=== PATIENT | female | born 1945 | race Caucasian/White ===

== ENCOUNTER 2021-05-24 17:26 | Inpatient (IN) | payer MEDICARE, SELFPAY ==
[2021-05-24 17:27] VITALS: BP 135/84; PULSE 110; RESP 18; TEMP 37.3; O2SAT 96; BMI 25.0
[2021-05-24 17:34] VITALS: BP 135/84; PULSE 110; RESP 18; TEMP 37.3; O2SAT 96
--- NOTE | 2021-05-24 17:51 | EDS_ITS ---
HPI History of Present Illness Chief Complaint: Weakness Detail of Chief Complaint: Failure to thrive Informant: patient and family Onset/Context/Timing Onset: Days Context: Gradual Onset Timing: Continuous Current Severity: Mild Maximum Severity: Mild Narrative Narrative: 76-year-old female who has colon cancer metastases. That has caused her to have left urinary obstruction and a nephrostomy tube placed. Recently she has been hospitalized twice at [facility], [place]. She was just d ischarged from there yesterday. And is unable to care for self at home. She also has a at home who is legally blind from macular degeneration. Her granddaughter is present in the emergency department. They would like to see her placed in extended care facility. Also while recently hospitalized she did test positive for Covid. Prior similar symptoms: Yes Recent Illness/Hospitalization: Yes PFSH PFS Medical History Anemia Attention to nephrostomy Colon cancer HTN (hypertension) Kidney disease Allergy/AdvReac Type Severity Reaction Status Date / Time ANTIBIOTICS AdvReac Vomiting Uncoded 05/24/21 17:36 Surgical History H/O left hemicolectomy Social History Smoking Status: Unknown if ever smoked ROS ROS ED ROS Narrative Denies. Review of Systems ROS Unobtainable: Denies due to encephalopathy Constitutional Constitutional ED: Denies chills or fever(s) Eyes Eyes: Denies change in vision ENT ENT ED: Denies ear pain or rhinorrhea Cardiovascular Cardiovascular: Denies chest pain Respiratory/Chest Respiratory/Chest: Denies cough or dyspnea Gastrointestinal Gastrointestinal: Denies abdominal pain, diarrhea, nausea or vomiting Genitourinary Genitourinary ED: Denies dysuria Musculoskeletal Musculoskeletal: Denies myalgias Integumentary Denies rash Neurologic Neurologic: Denies headache(s) Psychiatric Psychiatric: Denies depression Endocrine Endocrinology: Denies polyuria Allergic/Immunologic Allergic/Immunologic ED: Denies urticaria EXAM Physical Exam Narrative Exam Narrative: 68-year-old female no acute distress. Vital signs stable afebrile. Pulse ox 96% on room air no hypoxia. HEENT exam unremarkable. Neck nontender no JVD. No lymphadenopathy. Lungs clear to auscultation bilaterally. Heart regular rhythm no murmur. Abdomen soft nontender nondistended normal bowel sounds no peritoneal signs. Moving all 4 extremities. No edema. Neurologically she is awake and alert. She is answering questions and following commands. Const Vital Signs: 05/24/21 17:27 05/24/21 17:34 05/24/21 17:37 Temperature 99.2 F H 99.2 F H Temperature Source Oral Oral Pulse Rate 110 H 110 H Respiratory Rate 18 18 Respiratory Effort Normal Respiratory Pattern Normal Blood Pressure 135/84 H 135/84 H Blood Pressure Mean 101 101 Pulse Ox 96 96 Oxygen Delivery Method Room Air Room Air Positive well nourished, well developed and obese; Negative for cachectic, contractures or unkempt General Appearance ED: well developed and NAD; Negative for unkempt, cachectic, contractures, cyanotic or diaphoretic Nutritional Appearance: obese; Negative for cachectic HEENT Reports moist mucous membranes Negative for trauma or tenderness Eyes PERRL and EOMs intact bilaterally Neck no lymphadenopathy, supple and no JVD General: Negative for tenderness Chest Wall inspection of chest normal and palpation of chest normal Resp normal respiratory effort and clear to auscultation bilaterally Auscultation: Negative for rales, rhonchi or wheezes Cardio regular rate, regular rhythm, S1 normal heart sound, S2 normal heart sound and no murmurs GI normal to inspection, nondistended, normoactive bowel sounds, non-tender and non -distended Inspection: Negative for abdominal distention Auscultation: normoactive bowel sounds Palpation: soft; Negative for tender, guarding or rebound tenderness present Back/Spine no CVA tenderness Back/Spine Narrative: Left nephrostomy tube. Extremity normal to inspection General Extremety ED: Negative for edema or tenderness General Extremity: Negative for edema Neuro oriented x3 Sensorium / Orientation: alert; Negative for orientation impaired, lethargic or stuporous Motor Exam: strength 5/5 throughout Psych mental status grossly normal Appearance: Negative for unkempt Attitude: No agitated Mood & Affect: Negative for depressed or tearful Skin no rashes or lesions noted and no wounds MDM MDM MDM Narrative Medical decision making narrative: Female history of colon CA with mets which is not having any treatment done for her. She is also Covid positive recently. Liu s been hospitalized x2 recently at another facility. She is failure to thrive at home and needs to be placed in a nursing facility. athletic turf worker will be involved. Repeat exam at 6:50 PM patient doing well. We went over test results. I discussed with her and her daughter possible hospice involvement. I also discussed with the hospitalist will be down to evaluate the patient for admission. Lab Data Attestation: I reviewed the patient's lab results. Lab results narrative: CBC White count 11.3. Hemoglobin 10.4. Electrolytes sodium 134. Gap 13. BUN 24 creatinine 1.23. Leukos 105. Labs: Laboratory Results - last 24 hr 05/24/21 05/24/21 17:35 17:35 WBC 11.3 H RBC 3.34 L Hgb 10.4 L Hct 31.4 L MCV 94.0 MCH 31.1 MCHC 33.1 RDW Std Deviation 40.4 RDW Coeff of Malathi 11.8 Plt Count 267 MPV 10.8 Immature Gran % (Auto) 0.700 Neut % (Auto) 71.0 H Lymph % (Auto) 19.3 Jackson % (Auto) 7.4 Eos % (Auto) 1.3 Baso % (Auto) 0.3 Absolute Neuts (auto) 8.0 H Absolute Lymphs (auto) 2.19 Nucleated RBC % 0 Sodium 134 L Potassium 3.6 Chloride 96 L Carbon Dioxide 25.0 Anion Gap 13 BUN 24 H Creatinine 1.23 H Estim Creat Clear Calc 33.92 Est GFR (MDRD) Af Amer 54 L Est GFR (MDRD) Non-Af 45 L BUN/Creatinine Ratio 19.5 Glucose 105 Calcium 8.6 Discharge Plan Dx/Rx/DC Orders Clinical Impression: Adult failure to thrive, COVID-19, Colon cancer metastasized to multiple sites, Acute unilateral obstructive uropathy Disposition Disposition: [facility]
[2021-05-24 18:04] LABS: Absolute Lymphocyte Count 2.19 X10^3/uL (0.83-4.51); Basophil# 0.03 X10^3/uL; Basophil% 0.3 % (0-1); Eosinophil# 0.15 X10^3/uL; Eosinophils% 1.3 % (0-5); Hematocrit 31.4 % (37-47); Hemoglobin 10.4 g/dL (12.0-15.0); Lymphocyte # 2.19 X10^3/ul (0.83-4.51); Lymphocyte % 19.3 % (19-41); Mean Corp Hgb Conc 33.1 g/dL (32-36); Mean Corpuscular Hgb 31.1 pg (27.0-32.0); Mean Platelet Vol. 10.8 fl (6.2-12.0); Monocyte# 0.84 X10^3/uL; Monocyte% 7.4 % (0-10); NRBC Flagged by Analyzer 0 % (0-5); Neutrophil # 8.03 X10^3/uL (2.7-7.7); Platelet Count 267 K/mm3 (150-450); RBC Distribution Width CV 11.8 % (11.6-14.6); RBC Distribution Width SD 40.4 fl (35.1-43.9); Red Blood Count 3.34 M/mm3 (4.2-5.4); White Blood Count 11.3 K/mm3 (4.4-11.0)
[2021-05-24 18:18] LABS: Anion Gap 13 (5-15); BUN 24 mg/dL (7-18); BUN/Creat Ratio 19.5 RATIO (10-20); Calcium,Total 8.6 mg/dL (8.5-10.1); Chloride 96 mmol/L (98-107); Creatinine, Serum 1.23 mg/dL (0.55-1.02); EST Glomerular Filtration Rate 45 mL/min (>60); Est Glom Filt Rate - Afr Amer 54 mL/min (>60); Estimated Creatinine Clearance 33.92 ml/min; Glucose 105 mg/dL (74-106); Potassium 3.6 mmol/L (3.5-5.1); Sodium Level 134 mmol/L (136-145)
--- NOTE | 2021-05-24 18:58 | CM.ED ---
SW Note Referral Source: parts identification technician Reason: Discharge planning SW met with patient and her granddaughter, Carlee. Patient gave this comic book writer permission to speak to her in the presence of the granddaughter. Granddaughter reported that patient was discharged from [facility] yesterday. Granddaughter said that patient has been in the hospital for the last 5 weeks, except for being at patient's daughters house for a few days. Granddaughter said that patient did not allow the medical staff to update family yesterday and thus patient's , who has macular degeneration, came to the hospital and got patient. Granddaughyter said that the patient's neighbor helped to get patient into the mobile home. Granddaughter said that patient's called looking for a wheelchair and could not locate one so patient was put in a office chair and wheeled to the back of the mobile home and she slept in the office chair at night. Patient, per granddaughter, said that her PCP would flush out her PICC line in 2 weeks. Granddaughter said that family is concerned about patient's safety. Patient was on [facility] but when into the hospital to have stints placed and thus got off hospice. Patient's granddaughter stated that they also talked to Palliative care but they would see patient only once every 6 weeks .. like your PCP. Granddaughter, Carlee, said If you stay in a residential for 30 days you will get all your home health covered when you are discharged. SW asked patient her desires and she indicated that she was in agreement with going to SNF with her first choice being the [place] and second choice [facility]. KETURAH explained that since patient tested COVID positive each facility may have their own criteria for placement and some SNF may not accept covid positive patients. KETURAH advised that this comic book writer will document this conversation and patient will then follow up with the social service technician on the floor she will be going to. Patient has been covid positive, with test, for 5 days. Patient and granddaughter verbalized understanding. No issues or concerns voiced. SW remains available if needs arise. SW will hand off information to assigned social service technician. Of note patient was previously linked with [facility]. Plan: SNF at discharge 1) [facility] 2) [facility]
--- NOTE | 2021-05-24 19:15 | HP.PCM.HOS_ITS ---
[facility] Date of Admission: 05/24/21 Date of Service: 05/24/21 Chief Complaint: Failure to thrive [facility] Narrative LISA NG, is a 76 F who presented to the emergency department [facility] on 05/24/2021 for debility and weakness/failure to thrive. The patient had recently been hospitalized at [facility] twice recently. She was just discharged from there yesterday. She has a history of metastatic colon cancer and is no longer undergoing treatment. Her cancer is caused her to have a left urinary obstruction and a nephrostomy was tube was placed for that. She follows with nephrology. She also has a left upper chest tunneled central line but is not undergoing any therapy via that at this time. She evidently was at my diet in general and was sharing a room with the patient who ended up being Covid positive and was tested and was found to be positive as well. Her test was 5 days ago. She is completely asymptomatic with regards to Covid. Upon getting home yesterday it was found that she was not able to take care of herself and her who has macular degeneration and is legally blind could not help take care of her either. There were thoughts that this would happen and there were plans for placement at [facility] but the patient then insisted that she was able to go home and would not allow case management to have any further discussion with her granddaughter with regards to placement. Given her issues at home they brought her to the emergency department to get placement. Her vital signs in the emergency department show that she is afebrile, mildly hypertensive and with low-grade tachycardia. The patient states that she is not been eating well. She states this is because she did not like the food at the hospital. She denies any shortness of breath, pain, naus ea, vomiting, diarrhea, constipation. Her granddaughter is at the bedside and states that they are hopeful that her nephrostomy tube will be able to become out and her tunneled central line will be able to be removed and she will be able to go home again. They do indicate that they have been [facility] but have not yet met with them yet. Her labs show mild leukocytosis and anemia but I have no recent lab for comparison. Her BMP shows mild hyponatremia 134 and a mildly elevated BUN and creatinine but is otherwise normal. I do not know what her baseline renal function is either. Her nephrostomy tube appears to be functioning well. Her granddaughter who is at bedside states that she would like her to be discharged to the [facility] or [facility]. They did already talk to the supervisor case loading in the emergency department. She would need 5 more days of isolation to complete 10-day course and she is asymptomatic with regards to COVID-19. [facility] Medical History Anemia Attention to nephrostomy Colon cancer HTN (hypertension) Kidney disease Allergy/AdvReac Type Severity Reaction Status Date / Time ANTIBIOTICS AdvReac Vomiting Uncoded 05/24/21 17:36 no significant family history Surgical History H/O left hemicolectomy Social History (Updated 05/24/21 @ 19:[address] Samia Evans DO) Smoking Status: Never smoker alcohol intake: never substance use type: does not use ROS Constitutional Constitutional: Reports anorexia, fatigue and weakness; Denies change in weight, chills, fever(s), malaise, night sweats or other Eyes Eyes: Denies blurry vision, change in eye color, change in vision, discharge from eye(s), double vision, erythema, eye pain, loss of vision or other ENT HEENT: Denies abnormal hearing, dysphagia, ear pain, epistaxis, headache(s), hearing loss, nasal congestion, nasal discharge, post nasal drip, sinus pressure, sore throat or other Cardiovascular Cardiovascular: Denies chest pain, claudication, dyspnea on exertion, edema, lightheadedness, orthopnea, palpitations, paroxysmal nocturnal dyspnea, rapid heart rate, syncope or other Respiratory/Chest Respiratory/Chest: Denies cough, dyspnea, excessive phlegm production, hemoptysis, productive cough, shortness of breath at rest, shortness of breath with exertion, wheezing or other Gastrointestinal Gastrointestinal: Reports other Details: Weight loss ; Denies abdominal pain, coffee ground emesis, constipation, diarrhea, dyspepsia, hematemesis, hematochezia, loose stools, melena, nausea or vomiting Genitourinary Genitourinary: Denies burning urination, difficulty urinating, dysuria, hematuria, nocturia, urinary frequency, urinary hesitancy, urinary incontinence, urinary urgency or other Musculoskeletal Musculoskeletal: Reports other Details: Generalized weakness ; Denies arthralgias, back pain, joint pain, joint stiffness, joint swelling, myalgias or neck pain Neurologic Neurologic: Reports confusion and other Details: Intermittent confusion ; Denies abnormal gait, abnormal speech, disequilibrium, dizziness, focal weakness, headache(s), numbness, paresthesias, seizure-like activity, seizures, syncope, tingling or tremor(s) Psychiatric Psychiatric: Denies anxiety, depression, homicidal ideation, suicidal ideation or other Endocrine Endocrinology: Denies change in body appearance, cold intolerance, excessive sweating, heat intolerance, polydipsia, polyuria or other Hematologic/Lymphatic Hematologic/Lymphatic: Denies anemia, easy bleeding, easy bruising, lymphadenopathy or other Allergic/Immunologic Allergic/Immunologic: Denies rhinitis, hives, eczemia, asthma or other Vital Signs Vital Signs Vital Signs: 05/24/21 17:27 05/24/21 17:34 05/24/21 17:37 Temperature 99.2 F H 99.2 F H Temperature Source Oral Oral Pulse Rate 110 H 110 H Respiratory Rate 18 18 Respiratory Effort Normal Respiratory Pattern Normal Blood Pressure 135/84 H 135/84 H Blood Pressure Mean 101 101 Pulse Ox 96 96 Oxygen Delivery Method Room Air Room Air Weight Weight: 68.2 kg Body Mass Index (BMI) 25.0 Physical Exam Const alert, oriented x3 and no apparent distress Constitutional Narrative: Elderly white female sitting up in bed, nontoxic- appearing, granddaughters at bedside General Appearance: cooperative HEENT normocephalic, head/scalp atraumatic, hearing grossly normal bilaterally and moist oral mucous membranes HEENT Narrative: Dentition is fair, no thrush, Mallampati 2 Eyes PERRL, EOMs intact bilaterally and conjunctivae normal Eyes Narrative: No scleral icterus Neck no lymphadenopathy, supple, no JVD and no carotid bruits Neck Narrative: Trachea is midline, no thyroid enlargement, right sternoclavicular joint is abnormal with protuberant Resp normal respiratory effort, no retractions, no use of accessory muscles and clear to auscultation bilaterally Auscultation: Negative for crackles, rales, rhonchi or wheezes Cardio regular rhythm, S1 normal heart sound, S2 normal heart sound, no murmurs, no rub, no gallops, no clicks and no JVD Cardio Narrative: Tachycardia GI normal to inspection, nondistended, normoactive bowel sounds, soft to palpation, non-tender and non-distended Extremity no clubbing, cyanosis or edema Peripheral Pulses: Yes pulses 2+ throughout Skin no rashes or lesions noted, no wounds, skin turgor normal, no jaundice, no petechiae and no mottling Skin Narrative: Skin is pale, left upper chest tunneled central venous catheter- clean and dry, dressing in place Neuro oriented x3, CN's II-XII intact bilaterally, moves all extremities and no focal motor deficits Neuro Narrative: Significant generalized weakness but no focal deficits Sensorium / Orientation: awake and alert Speech: speech normal Psych affect normal Results Lab / Micro Data Result Diagrams: 05/24/21 17:35 05/24/21 17:35 Labs: Laboratory Results - last 24 hr 05/24/21 17:35: WBC 11.3 H, RBC 3.34 L, Hgb 10.4 L, Hct 31.4 L, MCV 94.0, MCH 31.1, MCHC 33.1, RDW Std Deviation 40.4, RDW Coeff of Malathi 11.8, Plt Count 267, MPV 10.8, Immature Gran % (Auto) 0.700, Neut % (Auto) 71.0 H, Lymph % (Auto) 19.3, [place] % (Auto) 7.4, Eos % (Auto) 1.3, Baso % (Auto) 0.3, Absolute Neuts (auto) 8.0 H, Absolute Lymphs (auto) 2.19, Nucleated RBC % 0 05/24/21 17:35: Sodium 134 L, Potassium 3.6, Chloride 96 L, Carbon Dioxide 25.0, Anion Gap 13, BUN 24 H, Creatinine 1.23 H, Estim Creat Clear Calc 33.92, Est GFR (MDRD) Af Amer 54 L, Est GFR (MDRD) Non-Af 45 L, BUN/Creatinine Ratio 19.5, Glucose 105, Calcium 8.6 Assessment & Plan Assessment/Plan (1) Adult failure to thrive: (2) COVID-19: (3) Colon cancer metastasized to multiple sites: (4) Acute unilateral obstructive uropathy: PLAN: Adult failure to thrive -Patient will need placement as she is not able to live at home -Family prefers the [facility] versus [facility] -Patient needs assistance with ADLs and IADLs -Patient also has nephrostomy tube and tunneled central catheter which she needs assistance with and management -PT/OT consultation COVID-19 -Patient is essentially asymptomatic -Roommate at [facility] was found to be positive and she subsequently tested positive but has been asymptomatic since onset -Positive test was 5 days ago -Patient will need 5 more days for 10 days of isolation/quarantine -No treatment warranted at this time Metastatic colon cancer -Patient is no longer undergoing therapy -Palliative care consultation -Extensive discussion with the patient with regards to CODE STATUS during the emergency hospital course and she would like to stay full code at this time despite the recommendation for DNR CCA -No current pain Acute unilateral obstructive uropathy -Currently being managed with a nephrostomy tube -Follows with nephrology -Recommend outpatient follow-up -Urine output from site is good at this time BRIJESH versus CKD -Baseline serum creatinine is unknown -We will give gentle hydration at this time and monitor serum creatinine -Urostomy output is good -Repeat BMP in a.m. DVT prophylaxis -Lovenox daily -SCDs CODE STATUS -Full code as per discussion the emergency department with patient and granddaughter Charges/Coding Visit Charges Inpatient E&M: 29391 Init Hosp L3
[2021-05-24 19:19] VITALS: BP 122/74; PULSE 93; RESP 13; TEMP 36.7; O2SAT 95
[2021-05-24 19:48] VITALS: BMI 24.3
[2021-05-24 19:53] VITALS: BP 129/73; PULSE 93; RESP 16; TEMP 36.7; O2SAT 95
[2021-05-25] VITALS (7 sets, daily range): BP systolic 114–129; BP diastolic 65–77; PULSE 92–96; RESP 16; TEMP 36.4–36.5; O2SAT 94–97
[2021-05-25 06:09] LABS: Absolute Neutrophil Count 6.2 X10^3/uL (2.0-7.7); Basophil# 0.03 X10^3/uL; Basophil% 0.3 % (0-1); Eosinophil# 0.22 X10^3/uL; Eosinophils% 2.4 % (0-5); Hematocrit 30.3 % (37-47); Hemoglobin 9.9 g/dL (12.0-15.0); Lymphocyte % 19.9 % (19-41); Mean Corp Hgb Conc 32.7 g/dL (32-36); Mean Corpuscular Hgb 31.3 pg (27.0-32.0); Mean Corpuscular Volume 95.9 fL (81-99); Mean Platelet Vol. 10.7 fl (6.2-12.0); Monocyte# 0.79 X10^3/uL; Monocyte% 8.7 % (0-10); NRBC Flagged by Analyzer 0 % (0-5); Neutrophil # 6.17 X10^3/uL (2.7-7.7); Neutrophil % 68.1 % (47-70); Platelet Count 221 K/mm3 (150-450); RBC Distribution Width CV 11.8 % (11.6-14.6); RBC Distribution Width SD 41.3 fl (35.1-43.9); Red Blood Count 3.16 M/mm3 (4.2-5.4); White Blood Count 9.1 K/mm3 (4.4-11.0)
[2021-05-25 08:22] LABS: Anion Gap 14 (5-15); BUN 23 mg/dL (7-18); Calcium,Total 8.3 mg/dL (8.5-10.1); Chloride 100 mmol/L (98-107); EST Glomerular Filtration Rate 57 mL/min (>60); Est Glom Filt Rate - Afr Amer 69 mL/min (>60); Estimated Creatinine Clearance 41.72 ml/min; Glucose 75 mg/dL (74-106); Potassium 3.9 mmol/L (3.5-5.1); Sodium Level 137 mmol/L (136-145)
--- NOTE | 2021-05-25 08:41 | CASEMGMT ---
Addendum entered by Kelsey Stephens 05/25/21 09:23: SW also placed a call to Joselin at [facility] to ask what their requirements are for COVID+ pt's. Joselin states they won't even look at a referral until pt has completed 14 days from post positive test. Joselin states they would look at the referral on day 15 of post positive test. SW placed a call to pt's granddaughter Carlee and left message requesting call back. SW to discuss SNF options with pt and pt's family. Original Note: Social Work Note SW received referral for SNF placement. Pt supposedly had Positive COVID test 5 days ago (SW to confirm this with pt and pt's family). Pt's preferred provider is [facility]. SW placed a call to Evangelina at [facility]. Evangelina states they will only take COVID pt's that are 10 days post positive test and has to be symptom free for 24 hours. SW to check with pt and pt's family on regards to exact day of COVID positive test. 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
[2021-05-25] MEDS: Enoxaparin 40 MG/0.4 ML Syringe SC (08:54)
[2021-05-25] MEDS: 0.9% Saline Lock 10 ML Syringe IV (08:56)
--- NOTE | 2021-05-25 10:14 | NURSING ---
Per Carlee, pt's granddaughter, pt had positive Covid test on 05/19/21
--- NOTE | 2021-05-25 11:00 | CASEMGMT ---
Social Work Assessment Referral Date: 05/24/2021 Date of Assessment: 05/25/2021 Reason for consult: SNF placement Informant: KETURAH REBOLLAR received call from pt's granddaughter Carlee. KETURAH spoke with Carlee about pt. Carlee galan pt was at [facility] most recently from 05/10/2021-05/23/2021. Carlee galan pt was in a semi private room and pt's roommate went to a [facility] and had to be tested for COVID and ended up testing positive so then they tested pt and pt also came back COVID positive. Carlee galan pt tested positive on 05/19/21. Carlee thinks pt may have left [facility] AMA as pt stating no one educated her on the nephrostomy bag that pt has and pt was discharged home with a PICC line that pt didn't need at home. Carlee states she is not sure though as pt had told [facility] staff they couldn't talk to her so she is unable to get any information from them. KETURAH spoke with Carlee about discharge plans and how [facility] will not take pt until pt is 10 days from post positive test and pt will need 4 more days until pt is 10 days post positive test. Carlee states that she was told in the ED that pt would stay at [facility] for five days until pt is 10 days post positive. KETURAH informed Carlee that everything that is being managed at [facility] can be managed at a SNF (therapy, COVID, etc) and of note, pt is not on any oxygen currently for COVID and is not having any symptoms. KETURAH informed Carlee that pt would need to go to a different SNF initially and then could transition to [facility] once pt is 10 days post positive test. KETURAH informed Carlee that there is a SNF [facility] that did open up a COVID unit and may be able to accept pt. KETURAH explained that [facility] is the only SNF [facility] accepting COVID+ pt's so if they cannot accept pt, pt would need to go to a SNF in [place]. Carlee states she is fine with pt going to [facility] in [place] (as Carlee lives in [place]) and could then transition to [facility] once pt is 10 days post positive test. KETURAH informed Carlee that this worker will speak with pt and keep her updated. Carlee states understanding. Personal Status: SW in to speak with pt. KETURAH introduced self and role at [facility]. Pt is alert and orientated to name, place, somewhat time. Pt knew it was 2020 but thought it was May. Living Arrangements: Pt states she lives with her in a mobile home with three steps to enter with railings by the steps. PCP: Pt states she doesn't think she has a PCP, states she see's many doctors. Per pt's facesheet, pt's PCP is Rohini Morris. Pharmacy: [facility]: Pt states she has a cane and walker ADLs: Independent Substance Abuse Hx: None Mental Health Hx: None SW spoke with pt about SNF about how this worker spoke with Carlee. KETURAH informed pt that because she hasn't completed 10 days post positive COVID test, pt cannot go to [facility]. KETURAH explained that there is a SNF [facility], that is accepting COVID+ pt's. KETURAH informed pt that Carlee is agreeable to pt going to [facility]. Pt states she is agreeable and states whatever Carlee thinks is good. KETURAH spoke with PT/OT, they are to evaluate pt soon. SW faxed initial referral to Gemma at [facility]. SW to fax PT/OT once completed. KETURAH placed a call to Gemma at [facility] and left message regarding referral. 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
--- NOTE | 2021-05-25 11:54 | TREXTCAR_ITS ---
Diet 05/24/21 19:47 Diet: Regular - General Food consistency:: Regular Liquid Consistency:: Regular/Thin Type of Dietary Supplement:: Magic Cup Dessert Diet Comments: magic cup TID Routine Orders/Code Status Routine Lab Work: CBC (within 3 days) and BMP (within 3 days) Code Status: Full Code Therapies Weight Bearing: Weight bearing as tolerated Problem/Diagnosis (1) Adult failure to thrive: Status: Acute (2) COVID-19: Status: Acute (3) Colon cancer metastasized to multiple sites: Status: Acute (4) Acute unilateral obstructive uropathy: Status: Acute Allergies/Procedures Done in Hospital Allergies ANTIBIOTICS Adverse Reaction (Uncoded 05/24/21 17:36) Vomiting PT SUÁREZ CHART STATES NO ACTIVE KNOWN ALLERGIES Procedures: None Type of Care/Length of Stay Estimated LOS: Convalescent Care Less Than 30 days Type of Care Needed: Skilled Rehab Potential: Good Prognosis: Good Additional Orders/Day of Discharge Day of Discharge: 05/25/21 Discharge Plan Admission Admit Date/Time: 05/24/21 19:10 Primary Reason for Your Visit: Debility/Acute COVID-19 infection without hypoxia Attending Provider: Shira Aguayo Instructions Additional Instructions / Restrictions: Patient needs palliative care consultation in the [place] Discharge Orders/Prescriptions Prescriptions: Continued acetaminophen [Tylenol] 325 mg Tablet 650 mg PO Q4H PRN (Reason: Pain) RF: 0 dronabinol 2.5 mg capsule 2.5 mg PO BIDCM RF: 0 Referrals / Follow Up: ELTON CRONIN [Other] Gladys Juan MD [STAFF PHYSICIAN] - Within 2 Weeks Disposition Disposition (needs filled in before D/C Order can be placed): [facility]irement Facility
--- NOTE | 2021-05-25 11:58 | PCM.DC.SUM ---
Providers Date of Admission: 05/24/21 Date of Discharge: 05/25/21 Primary Care Physician: ELTON CRONIN Reason For Visit: DEBILITY Diagnosis Discharge Diagnosis (1) Adult failure to thrive: Status: Acute Code(s): R62.7 - Adult failure to thrive (2) COVID-19: Status: Acute Code(s): U07.1 - COVID-19 (3) Colon cancer metastasized to multiple sites: Status: Chronic Code(s): C18.9 - Malignant neoplasm of colon, unspecified (4) Acute unilateral obstructive uropathy: Status: Chronic Code(s): N13.9 - Obstructive and reflux uropathy, unspecified Medications at Discharge Home Medications acetaminophen [Tylenol] 650 mg PO Q4H PRN 05/24/21 dronabinol 2.5 mg PO BIDCM 05/24/21 Hospital Course Operations None Procedures None Summary of Care Provided Minutes Spent on Discharge: 45 Hospital Course: 76-year-old female with past medical history of metastatic colon CA, no longer undergoing chemotherapy, complicated by left urinary obstruction with nephrostomy tube placed. Patient was recently hospitalized at [facility] 2 times recently. She was discharged a day prior to admission. Patient presented with generalized weakness. She stated that at [facility], she shared a room with the patient who ended up being Covid positive. She got tested and was positive as well. She has however remained asymptomatic with regards to her Covid infection. She did not require oxygen. Her family especially her has macular degeneration and is legally blind and cannot help take care of herself. In [facility], there were plans for placement in a group home facility but patient refused. According to family, patient is not eating well. She was admitted to the hospital and monitored. She still did not require oxygen. Patient was seen by PT and OT and skilled for discharge to group home facility. She was discharged to [facility]. She will be followed by palliative care in the institution. Patient was never hypoxic and did not require use of Decadron. Physical Exam Narrative Physical exam: General: Alert, Oriented x3, Cooperative, No apparent distress, Well developed HEENT: Atraumatic Oral: Moist Mucosa Neck: Supple Lungs: Clear to auscultation Cardiovascular: HS I+II, regular, no murmurs Abdomen: Bowel Sounds Present, Soft, Non Tender, nephrostomy tube Extremities: No edema Weight / BMI Weight Weight: 66.4 kg Body Mass Index (BMI) 24.3 ABG / Lab / Microbiology Data Result Diagrams: 05/25/21 05:46 05/25/21 05:46 Laboratory: Laboratory Results - last 24 hr 05/24/21 17:35: WBC 11.3 H, RBC 3.34 L, Hgb 10.4 L, Hct 31.4 L, MCV 94.0, MCH 31.1, MCHC 33.1, RDW Std Deviation 40.4, RDW Coeff of Malathi 11.8, Plt Count 267, MPV 10.8, Immature Gran % (Auto) 0.700, Neut % (Auto) 71.0 H, Lymph % (Auto) 19.3, [place] % (Auto) 7.4, Eos % (Auto) 1.3, Baso % (Auto) 0.3, Absolute Neuts (auto) 8.0 H, Absolute Lymphs (auto) 2.19, Nucleated RBC % 0 05/24/21 17:35: Sodium 134 L, Potassium 3.6, Chloride 96 L, Carbon Dioxide 25.0, Anion Gap 13, BUN 24 H, Creatinine 1.23 H, Estim Creat Clear Calc 33.92, Est GFR (MDRD) Af Amer 54 L, Est GFR (MDRD) Non-Af 45 L, BUN/Creatinine Ratio 19.5, Glucose 105, Calcium 8.6 05/25/21 05:46: WBC 9.1, RBC 3.16 L, Hgb 9.9 L, Hct 30.3 L, MCV 95.9, MCH 31.3, MCHC 32.7, RDW Std Deviation 41.3, RDW Coeff of Malathi 11.8, Plt Count 221, MPV 10.7, Immature Gran % (Auto) 0.600, Neut % (Auto) 68.1, Lymph % (Auto) 19.9, [place] % (Auto) 8.7, Eos % (Auto) 2.4, Baso % (Auto) 0.3, Absolute Neuts (auto) 6.2, Absolute Lymphs (auto) 1.80, Nucleated RBC % 0 05/25/21 05:46: Sodium 137, Potassium 3.9, Chloride 100, Carbon Dioxide 23.0, Anion Gap 14, BUN 23 H, Creatinine 1.00, Estim Creat Clear Calc 41.72, Est GFR (MDRD) Af Amer 69, Est GFR (MDRD) Non-Af 57 L, BUN/Creatinine Ratio 23.0 H, Glucose 75, Calcium 8.3 L, Phosphorus 3.0, Magnesium 2.0 Meaningful Use Info Meaningful Use Diagnoses (Choose all that apply): None applicable Discharge Plan Admission Admit Date/Time: 05/24/21 19:10 Primary Reason for Your Visit: Debility/Acute COVID-19 infection without hypoxia Attending Provider: Shira Aguayo Instructions Additional Instructions / Restrictions: Patient needs palliative care consultation in the [place] Discharge Orders/Prescriptions Prescriptions: Continued acetaminophen [Tylenol] 325 mg Tablet 650 mg PO Q4H PRN (Reason: Pain) RF: 0 dronabinol 2.5 mg capsule 2.5 mg PO BIDCM RF: 0 Referrals / Follow Up: ELTON CRONIN [Other] Gladys Juan MD [STAFF PHYSICIAN] - Within 2 Weeks Disposition Disposition (needs filled in before D/C Order can be placed): Longterm Facility Charges/Coding Visit Charges Inpatient E&M: 18345 Disch Hosp
--- NOTE | 2021-05-25 12:54 | CASEMGMT ---
RNCM Progress Note: Palliative screening tool completed per [facility] policy d/t Dr Evans request and family was already in process with [facility] for consult but has not met yet d/t patient being admitted a couple times in hospital recently and just Dc'd from [facility] on 05/23/21. Patient met criteria and faxed to [facility]. Marry Reyes RNCM
--- NOTE | 2021-05-25 14:05 | CASEMGMT ---
Social Work Note SW received email from Gemma at [facility]missions stating they can accept pt today. KETURAH updated physician. Pt to discharge today. Physician asked for this worker to update Martita Simms with [facility] that pt is to discharge to [facility] today. SW updated Martita Simms, pt to discharge to [facility] today. KETURAH faxed completed discharge paperwork to [facility] including transfer to extended care facility, signed mediation list, any scripts, COVID tool and PT/OT evaluations. Original in SNF folder and copy on pt's chart. KETURAH completed convalescent [facility] in [facility]. Original in SNF Folder and copy on pt's chart. KETURAH spoke with RN, pt to transport via wheelchair van. KETURAH accessed trip assist and arranged transportation via wheelchair van for 3:00pm. Transportation form completed and placed on SNF folder and copy on pt's chart. KETURAH placed a call to pt's granddaughter Carlee and updated her that pt has been accepted to [facility] and will discharge there today at 3:00pm. Carlee states understanding. KETURAH placed a call to Gemma at [facility] and left message updating her on transportation time. KETURAH attempted to call pt's room to update, no answer. KETURAH spoke with RN. RN states she will update pt on acceptance to [facility], discharge and transportation time. Plan: [facility] skilled under convalescent stay with Physician's transporting pt via wheelchair van at 3:00pm Kelsey MARISCAL, AIR FILLER
--- NOTE | 2021-05-25 14:35 | NURSING ---
Report called to SHEREEN Linder at [facility]
== END 2021-05-25 15:00 | disposition skilled nursing facility (03) | DRG 640 ==
LOC: ED 18:55 → MS3 19:16
PROVIDERS: Admitting Provider Internal Medicine; Emergency Provider Emergency Medicine; Visit Provider Internal Medicine
DX: R62.7 Adult failure to thrive (principal); U07.1 COVID-19; C79.9 Secondary malignant neoplasm of unspecified site; E87.1 Hypo-osmolality and hyponatremia; C18.9 Malignant neoplasm of colon, unspecified; N13.9 Obstructive and reflux uropathy, unspecified; R94.4 Abnormal results of kidney function studies; I10 Essential (primary) hypertension; Z68.24 Body mass index [BMI] 24.0-24.9, adult; Z23 Encounter for immunization; Z93.6 Other artificial openings of urinary tract status
CPT/HCPCS: 36415; 80048; 83735; 84100; 85025; 97162; 97166; 99251; 99285; G0008; 90686; A4216; G0463

== ENCOUNTER 2021-08-28 18:13 | Observation (INO) | payer MEDICARE, MEDICAID, SELFPAY ==
[2021-08-28] VITALS (9 sets, daily range): BP systolic 116–133; BP diastolic 49–74; PULSE 91–106; RESP 16–96; TEMP 36.3–36.8; O2SAT 94–97; BMI 29.1; BMI 23.5
--- NOTE | 2021-08-28 18:33 | EDS_ITS ---
HPI History of Present Illness Chief Complaint: Complaint Informant: patient, family and EMS Onset/Context/Timing Onset: Today Quality: Dark bloody nephrostomy fluid Location: Right nephrostomy bag Current Severity: Moderate Maximum Severity: Moderate Worsened by: Nothing in particular Relieved by: Nothing Associated Symptoms Associated Symptoms: Gradual increase chronic right low back pain in past 1-2 weeks Narrative Narrative: Patient has history of metastatic colon cancer that she refused chemotherapy for several times. She had surgery, colostomy, and she noted of having ureteral stents that were removed several months ago, the cancer had caused obstruction of both of them, and within a day or 2 she stopped urinating, she already had a left nephrostomy and then required a right to be placed. Today she noticed dark bloody output into the right side and more than usual. The daughter states about 75% of her total urine output occurs on the left, which has been clear yellow but foul-smelling recently. Patient denies any fevers or chills. She has chronic nausea/vomiting, she gets Zofran 8 mg ODT alternating with Phenergan 25 mg orally throughout the day every day; she last received Phenergan about 1 hour ago and left received Zofran approximately 2-3 hours ago. Patient is inpatient hospice because she has been too weak to get around on her own. [facility]. All of her doctors are at [facility]. Daughter states she preferred to have hospice simply check her urine, but the patient refused and demanded to sign out of hospice temporarily to come to the ER; they preferred to have her go to [facility], however they were not able to take her by private car and needed EMS, and local EMS can only come locally. [facility] Medical History (Updated 08/28/21 @ 21:[address] Jeromy Dennis MD) Anemia Anxiety Attention to nephrostomy CKD (chronic kidney disease) stage 3, GFR 30-59 ml/min Colon cancer Diverticula of intestine Gastro-esophageal reflux disease without esophagitis Heart disease HTN (hypertension) Hydronephrosis Hypo-osmolality and hyponatremia Kidney disease Malignant neoplasm Nausea & vomiting Obstructive and reflux uropathy Protein calorie malnutrition UTI (urinary tract infection) Weakness Home Medications acetaminophen [Tylenol] 650 mg PO Q4H PRN 05/24/21 [History Last Taken Unknown] dronabinol 2.5 mg PO BIDCM 05/24/21 [History Last Taken Unknown] Allergy/AdvReac Type Severity Reaction Status Date / Time ANTIBIOTICS AdvReac Vomiting Uncoded 05/24/21 17:36 Surgical History H/O left hemicolectomy Social History Smoking Status: Never smoker alcohol intake: never substance use type: does not use ROS ROS ED Constitutional Constitutional ED: Reports fatigue and weakness; Denies chills or fever(s) Eyes Eyes: Denies change in vision or diplopia ENT ENT ED: Denies rhinorrhea or sore throat Cardiovascular Cardiovascular: Denies chest pain or palpitations Respiratory/Chest Respiratory/Chest: Denies cough or dyspnea Gastrointestinal Gastrointestinal: Reports constipation, nausea and vomiting; Denies abdominal pain or diarrhea Genitourinary Genitourinary ED: Denies dysuria or hematuria Musculoskeletal Musculoskeletal: Reports back pain; Denies neck pain Integumentary Denies abscess or rash Neurologic Neurologic: Denies headache(s), paresthesias or weakness Psychiatric Psychiatric: Denies anxiety or suicidal thoughts EXAM Physical Exam Const Vital Signs: 08/28/21 18:15 08/28/21 18:24 08/28/21 18:30 Temperature 97.6 F L 97.4 F L Temperature Source Temporal Temporal Pulse Rate 106 H 99 Respiratory Rate 16 18 Blood Pressure 132/73 H 132/73 H Blood Pressure Mean 92 92 Pulse Ox 96 97 Oxygen Delivery Method Room Air Room Air 08/28/21 19:55 08/28/21 20:26 Temperature 98 F 98 F Temperature Source Temporal Temporal Pulse Rate 91 91 Respiratory Rate 18 96 H Blood Pressure 128/56 H 122/49 H Blood Pressure Mean 80 73 Pulse Ox 96 96 Oxygen Delivery Method Room Air Room Air Positive well nourished and well developed General Appearance ED: well developed and NAD HEENT Reports moist mucous membranes normocephalic and atraumatic Eyes PERRL and EOMs intact bilaterally Neck full ROM and supple Resp normal respiratory effort and clear to auscultation bilaterally Cardio regular rate, regular rhythm and no murmurs GI non-tender and non-distended GI Narrative: Left lower quadrant colostomy with nonbloody hard stool present Auscultation: normoactive bowel sounds Palpation: soft Back/Spine normal to inspection General Back: CVA tenderness right (with benign-appearing nephrostomy sites bilaterally, no discharge from catheter sites.) and other FROM Extremity normal to inspection General Extremety ED: Negative for edema, pulses abnormal or tenderness General Extremity: Negative for edema or pulses abnormal Neuro oriented x3, CN's II-XII intact bilaterally and no sensory deficits noted Sensorium / Orientation: awake and alert Motor Exam: strength 5/5 throughout Skin no rashes or lesions noted and no wounds MDM MDM MDM Narrative Medical decision making narrative: Labs are noted, lactate within normal limits, her potassium is a little low, no significant leukocytosis, and her vital signs are normal. Her nausea is well controlled with a dose of Zofran, her nausea resolved for period of time. Her pain is much better now that her facility gave her Dilaudid. Both of her urine samples from her nephrostomy tubes show almost identical results, except for the one that looks bloody does indeed have more blood content. Both are triggering positive infection tests and have bacteria. Differential here includes infection as well as bleeding from other cause, she is not septic, she could be colonized and not infected. I agree with treating her with antibiotics until the cultures result, at the very least. Patient is unable to tolerate any oral antibiotic due to vomiting. She has a PICC in the left upper extremity, our nurses changed the dressing for the first time in 3 weeks according to the daughter. The patient is in hospice but checked herself out in order to come here today. They are requesting that we continue IV antibiotics here in the hospital until the morning when hopefully [facility] can get her into the inpatient facility, daughter is concerned that [facility] does not have adequate staff to administer IV antibiotics at this time. Lab Data Attestation: I reviewed the patient's lab results. Labs: Laboratory Results - last 24 hr 08/28/21 08/28/21 08/28/21 18:52 18:52 18:52 WBC 9.6 RBC 3.13 L Hgb 9.2 L Hct 29.2 L MCV 93.3 MCH 29.4 MCHC 31.5 L RDW Std Deviation 46.5 H RDW Coeff of Malathi 13.7 Plt Count 326 MPV 10.0 Immature Gran % (Auto) 0.500 Neut % (Auto) 72.3 H Lymph % (Auto) 15.[address] [place] % (Auto) 8.6 Eos % (Auto) 2.2 Baso % (Auto) 0.6 Absolute Neuts (auto) 7.0 Absolute Lymphs (auto) 1.52 Nucleated RBC % 0 Sodium 135 L Potassium 3.0 L Chloride 102 Carbon Dioxide 24.0 Anion Gap 9 BUN 23 H Creatinine 1.11 H Estim Creat Clear Calc 36.07 Est GFR (MDRD) Af Amer 61 Est GFR (MDRD) Non-Af 51 L BUN/Creatinine Ratio 20.7 H Glucose 122 H Lactic Acid 0.9 Calcium 8.6 Urine Color Urine Clarity Urine pH Ur Specific Brule Urine Protein Urine Glucose (UA) Urine Ketones Urine Occult Blood Urine Nitrite Urine Bilirubin Urine Urobilinogen Ur Leukocyte Esterase Urine RBC Urine WBC Ur Squamous Epith Cells Amorphous Sediment Urine Bacteria Urine Mucus 08/28/21 08/28/21 19:18 19:18 WBC RBC Hgb Hct MCV MCH MCHC RDW Std Deviation RDW Coeff of Malathi Plt Count MPV Immature Gran % (Auto) Neut % (Auto) Lymph % (Auto) [place] % (Auto) Eos % (Auto) Baso % (Auto) Absolute Neuts (auto) Absolute Lymphs (auto) Nucleated RBC % Sodium Potassium Chloride Carbon Dioxide Anion Gap BUN Creatinine Estim Creat Clear Calc Est GFR (MDRD) Af Amer Est GFR (MDRD) Non-Af BUN/Creatinine Ratio Glucose Lactic Acid Calcium Urine Color Milagros Yellow Urine Clarity Cloudy Cloudy Urine pH 8.0 7.0 Ur Specific Brule 1.015 1.010 Urine Protein 500 H 30 H Urine Glucose (UA) Normal Normal Urine Ketones 5 H Negative Urine Occult Blood 250 H 250 H Urine Nitrite Positive H Positive H Urine Bilirubin Negative Negative Urine Urobilinogen Normal Normal Ur Leukocyte Esterase 500 H 500 H Urine RBC > 100 SEEN 25-50 SEEN Urine WBC 50-100 SEEN 50-100 SEEN Ur Squamous Epith Cells 0-5 SEEN 0-5 SEEN Amorphous Sediment 2+ PHOS 1+ PHOS Urine Bacteria 2+ 1+ Urine Mucus 0 SEEN 0 SEEN Discharge Plan Triage Chief Complaint: Complaint ED Provider: Jeromy Dennis Dx/Rx/DC Orders Clinical Impression: Complicated urinary tract infection, Colon cancer metastasized to multiple sites, Hematuria, Obstructed, uropathy Prescriptions: No Action acetaminophen [Tylenol] 325 mg Tablet 650 mg PO Q4H PRN (Reason: Pain) RF: 0 dronabinol 2.5 mg capsule 2.5 mg PO BIDCM RF: 0 Referrals: ELTON CRONIN [Other] Disposition Disposition: Acute Care Hospital [facility]
[2021-08-28] MEDS: Ondansetron 4 MG/2 ML Vial IV (19:04)
[2021-08-28 19:16] LABS: Absolute Lymphocyte Count 1.52 X10^3/uL (0.83-4.51); Basophil# 0.06 X10^3/uL; Basophil% 0.6 % (0-1); Eosinophil# 0.21 X10^3/uL; Eosinophils% 2.2 % (0-5); Hematocrit 29.2 % (37-47); Hemoglobin 9.2 g/dL (12.0-15.0); Lymphocyte # 1.52 X10^3/ul (0.83-4.51); Lymphocyte % 15.8 % (19-41); Mean Corp Hgb Conc 31.5 g/dL (32-36); Mean Corpuscular Hgb 29.4 pg (27.0-32.0); Mean Corpuscular Volume 93.3 fL (81-99); Monocyte# 0.83 X10^3/uL; Monocyte% 8.6 % (0-10); NRBC Flagged by Analyzer 0 % (0-5); Neutrophil # 6.96 X10^3/uL (2.7-7.7); Neutrophil % 72.3 % (47-70); Platelet Count 326 K/mm3 (150-450); RBC Distribution Width CV 13.7 % (11.6-14.6); RBC Distribution Width SD 46.5 fl (35.1-43.9); Red Blood Count 3.13 M/mm3 (4.2-5.4); White Blood Count 9.6 K/mm3 (4.4-11.0)
[2021-08-28 19:26] LABS: Mucous, Urine 0 SEEN /hpf (<or=2+)
[2021-08-28 19:29] LABS: Anion Gap 9 (5-15); BUN 23 mg/dL (7-18); BUN/Creat Ratio 20.7 RATIO (10-20); Calcium,Total 8.6 mg/dL (8.5-10.1); Chloride 102 mmol/L (98-107); Creatinine, Serum 1.11 mg/dL (0.55-1.02); EST Glomerular Filtration Rate 51 mL/min (>60); Est Glom Filt Rate - Afr Amer 61 mL/min (>60); Estimated Creatinine Clearance 36.07 ml/min; Glucose 122 mg/dL (74-106); Sodium Level 135 mmol/L (136-145)
[2021-08-28 19:30] LABS: Color, Urine Amber (Yellow); Glucose, Dipstick Normal (Normal); Ketone-Dipstick 5 mg/dl (Negative); Leukocyte Esterase-Dipstick 500 /ul (Negative); Nitrite-Dipstick Positive (Negative); Occult Blood-Urine 250 /ul (Negative); Protein-Dipstick 500 mg/dl (Negative); Specific Gravity, Urine 1.015 (1.002-1.030); Urine Bilirubin Dipstick Negative (Negative); Urine Clarity Cloudy (Clear); Urine Urobilinogen Normal (Normal)
[2021-08-28 19:37] LABS: White Blood Cells 50-100 SEEN /hpf (0-5)
[2021-08-28 19:38] LABS: Amorphous Sediment 2+ PHOS; Bacteria 2+ /hpf (None Seen); Red Blood Cells-Urine > 100 SEEN /hpf (0-5); Squamous Epithelial Cells - UA 0-5 SEEN /hpf (5-10)
[2021-08-28 19:55] LABS: Lactic Acid 0.9 mmol/L (0.4-1.9)
[2021-08-28 20:02] LABS: Mucous, Urine 0 SEEN /hpf (<or=2+)
[2021-08-28] MEDS: Ceftriaxone 1 GM/50 ML BAG IV (20:25)
[2021-08-28 20:37] LABS: Color, Urine Yellow (Yellow); Glucose, Dipstick Normal (Normal); Ketone-Dipstick Negative (Negative); Leukocyte Esterase-Dipstick 500 /ul (Negative); Nitrite-Dipstick Positive (Negative); Occult Blood-Urine 250 /ul (Negative); Protein-Dipstick 30 mg/dl (Negative); Urine Bilirubin Dipstick Negative (Negative); Urine Clarity Cloudy (Clear); Urine Urobilinogen Normal (Normal)
[2021-08-28] MEDS: Potassium Chloride 10mEq/100mL 10 MEQ/100 ML IV.SOLN. 100 MEQ IV BOLUS (20:39)
[2021-08-28 20:44] LABS: Amorphous Sediment 1+ PHOS; Bacteria 1+ /hpf (None Seen); Red Blood Cells-Urine 25-50 SEEN /hpf (0-5); Squamous Epithelial Cells - UA 0-5 SEEN /hpf (5-10); White Blood Cells 50-100 SEEN /hpf (0-5)
--- NOTE | 2021-08-28 21:47 | PCM.HP.STD ---
HPI - General General Date of Admission: 08/28/21 Date of Service: 08/28/21 Chief Complaint: Intractable flank, back pain HPI Narrative The patient is a 76 y/o F residing at [facility] w/ PMHx: CKD stage III unclear subtype, Anxiety and Depression, Chronic anemia, GERD, Metastatic Colon CA s/p hemicolectomy, ostomy, history of ureteral obstruction w/ placement BL nephrostomy tubes, one recently at [place] with recent [facility] [place] discharge ~ 2-3 weeks prior to current presentation who presents to the [facility] ED on 08/28/21 with ongoing intractable flank especially right sided flank as well as low back pain with radiculopathy over the last 1 to 2 weeks with recent discharge as noted with nephrostomy tube. Patient is also had foul-smelling urine recently from the nephrostomy. She denies any recent fevers or chills. She notes the pain is constant, aching and rated between 3 and 9 out of 10 in severity intermittently through the day. She has been having ongoing intractable nausea and emesis despite antiemetic therapy. Family and patient note that they have not been able to get pain medicine very quickly at the skilled facility secondary to staffing shortages. Work-up in the ED included T 90.2, heart rate 92, BP 126/74, respiratory rate 18, 97% on room air, CBC with WC 9.6, hemoglobin 9.2, platelet 326.marked shift, BMP with sodium 135, potassium 4.0, BUN/creatinine 23/1.11, glucose 122, lactic acid 0.8, urinalysis with evidence of urinary tract infection versus colonization, blood culture x2 pending per ED, urine culture pending per ED. In the ED patient ministered IV Rocephin. [facility] Medical History (Updated 08/28/21 @ 21:[address] Jeromy Dennis MD) Anemia Anxiety Attention to nephrostomy CKD (chronic kidney disease) stage 3, GFR 30-59 ml/min Colon cancer Diverticula of intestine Gastro-esophageal reflux disease without esophagitis Heart disease HTN (hypertension) Hydronephrosis Hypo-osmolality and hyponatremia Kidney disease Malignant neoplasm Nausea & vomiting Obstructive and reflux uropathy Protein calorie malnutrition UTI (urinary tract infection) Weakness Home Medications acetaminophen [Tylenol] 650 mg PO Q4H PRN 05/24/21 [History Last Taken Unknown] dronabinol 2.5 mg PO BIDCM 05/24/21 [History Last Taken Unknown] Allergy/AdvReac Type Severity Reaction Status Date / Time ANTIBIOTICS AdvReac Vomiting Uncoded 05/24/21 17:36 Family History (Updated 08/28/21 @ 22:[address] Rachel Kennedy MD) Mother Diabetes Father Leukemia Surgical History (Updated 08/28/21 @ 22:[address] Rachel Kennedy MD) H/O left hemicolectomy History of creation of ostomy History of nephrostomy Social History (Updated 08/28/21 @ 22:[address] Rachel Kennedy MD) household members: significant other Smoking Status: Never smoker alcohol intake: never substance use type: does not use ROS ROS Narrative Admission Review of Systems: CONSTITUTIONAL: No weight loss, fever, chills, + weakness or fatigue. HEENT: Eyes: No visual loss, blurred vision, double vision or yellow sclerae. Ears, Nose, Throat: No hearing loss, sneezing, congestion, runny nose or sore throat. SKIN: No rash or itching, lesions, wounds. CARDIOVASCULAR: No chest pain, chest pressure or chest discomfort, palpitations, edema, orthopnea, syncopal events. RESPIRATORY: No shortness of breath, cough or sputum, wheezing, hemoptysis. GASTROINTESTINAL: + Anorexia, nausea, vomiting, No diarrhea, abdominal pain, melena, BRBPR. GENITOURINARY: + BL nephrostomy in place, purulent output, flank pain. NEUROLOGICAL: No headache, dizziness, syncope, paralysis, ataxia, numbness or tingling in the extremities, focal weakness, change in bowel or bladder control, seizure. MUSCULOSKELETAL: + muscle, back pain, joint pain or stiffness. HEMATOLOGIC: + anemia, bleeding or bruising. LYMPHATICS: No enlarged nodes. No history of splenectomy. PSYCHIATRIC: + history of depression or anxiety. ENDOCRINOLOGIC: No reports of sweating, cold or heat intolerance. No polyuria or polydipsia. ALLERGIES: No history of asthma, hives, eczema or rhinitis. Vital Signs Vital Signs Vital Signs: 08/28/21 18:15 08/28/21 18:24 08/28/21 18:30 Temperature 97.6 F L 97.4 F L Temperature Source Temporal Temporal Pulse Rate 106 H 99 Respiratory Rate 16 18 Blood Pressure 132/73 H 132/73 H Blood Pressure Mean 92 92 Pulse Ox 96 97 Oxygen Delivery Method Room Air Room Air 08/28/21 19:55 08/28/21 20:26 08/28/21 21:13 Temperature 98 F 98 F 98 F Temperature Source Temporal Temporal Temporal Pulse Rate 91 91 95 Respiratory Rate 18 96 H 18 Blood Pressure 128/56 H 122/49 H 133/59 H Blood Pressure Mean 80 73 83 Pulse Ox 96 96 96 Oxygen Delivery Method Room Air Room Air Room Air 08/28/21 21:43 Temperature 98.2 F Temperature Source Temporal Pulse Rate 92 Respiratory Rate 18 Blood Pressure 126/74 H Blood Pressure Mean 91 Pulse Ox 97 Oxygen Delivery Method Room Air Weight Weight: 169 lb 12.095 oz Body Mass Index (BMI) 29.1 Physical Exam Narrative Physical Examination: General: Awake, alert, oriented x 3 and cooperative, seated upright in the ED bed in no apparent distress, notes ongoing flank and lumbar back pain with radiculopathy. Skin: Normal color, normal turgor, no icterus, no cyanosis. HEENT: AT/NC, EOMI, PERRLA, mildly dry MM, no carotid bruits or JVD noted. Lungs: Diminished, greater bases, moderate effort, no rales, ronchi or wheezing. Heart: Regular rate and rhythm; no gallop, rub audible. Abdomen: Soft, overweight, NTTP, ND, distant normal BS, no HSM. Extremities: No cyanosis, no clubbing, bilateral distal gandhi to pedal not markedly pitting edema. Neurological: Patient awake, alert, oriented as noted, cognitive function intact; pupils equally reactive to light and accommodation, cranial nerves II-XII grossly normal, moving all 4 extremities, no focal deficits, strength moderately to severely globally Geeta secondary to chronic debility, pain and acute presentation. Psychiatric: Affect appears fatigued, no acute evidence of depressive or anxiety feelings. Results Lab / Micro Data Result Diagrams: 08/28/21 18:52 08/28/21 18:52 Labs: Laboratory Results - last 24 hr 08/28/21 18:52: WBC 9.6, RBC 3.13 L, Hgb 9.2 L, Hct 29.2 L, MCV 93.3, MCH 29.4, MCHC 31.5 L, RDW Std Deviation 46.5 H, RDW Coeff of Malathi 13.7, Plt Count 326, MPV 10.0, Immature Gran % (Auto) 0.500, Neut % (Auto) 72.3 H, Lymph % (Auto) 15.8 L, [place] % (Auto) 8.6, Eos % (Auto) 2.2, Baso % (Auto) 0.6, Absolute Neuts (auto) 7.0, Absolute Lymphs (auto) 1.52, Nucleated RBC % 0 08/28/21 18:52: Sodium 135 L, Potassium 3.0 L, Chloride 102, Carbon Dioxide 24.0, Anion Gap 9, BUN 23 H, Creatinine 1.11 H, Estim Creat Clear Calc 36.07, Est GFR (MDRD) Af Amer 61, Est GFR (MDRD) Non-Af 51 L, BUN/Creatinine Ratio 20.7 H, Glucose 122 H, Calcium 8.6 08/28/21 18:52: Lactic Acid 0.9 08/28/21 19:18: Urine Color Milagros, Urine Clarity Cloudy, Urine pH 8.0, Ur Specific [place] 1.015, Urine Protein 500 H, Urine Glucose (UA) Normal, Urine Ketones 5 H, Urine Occult Blood 250 H, Urine Nitrite Positive H, Urine Bilirubin Negative, Urine Urobilinogen Normal, Ur Leukocyte Esterase 500 H, Urine RBC > 100 SEEN, Urine WBC 50-100 SEEN, Ur Squamous Epith Cells 0-5 SEEN, Amorphous Sediment 2+ PHOS, Urine Bacteria 2+, Urine Mucus 0 SEEN 08/28/21 19:18: Urine Color Yellow, Urine Clarity Cloudy, Urine pH 7.0, Ur Specific [place] 1.010, Urine Protein 30 H, Urine Glucose (UA) Normal, Urine Ketones Negative, Urine Occult Blood 250 H, Urine Nitrite Positive H, Urine Bilirubin Negative, Urine Urobilinogen Normal, Ur Leukocyte Esterase 500 H, Urine RBC 25-50 SEEN, Urine WBC 50-100 SEEN, Ur Squamous Epith Cells 0-5 SEEN, Amorphous Sediment 1+ PHOS, Urine Bacteria 1+, Urine Mucus 0 SEEN Assessment & Plan Assessment/Plan (1) Complicated urinary tract infection: PLAN: The patient is a 76 y/o F residing at [facility] w/ PMHx: CKD stage III unclear subtype, Anxiety and Depression, Chronic anemia, GERD, Metastatic Colon CA s/p hemicolectomy, ostomy, history of ureteral obstruction w/ placement BL nephrostomy tubes, one recently at [place] with recent [facility] discharge ~ 2-3 weeks prior to current presentation who presents to the [facility] ED on 08/28/21 with ongoing intractable flank especially right sided flank as well as low back pain with radiculopathy over the last 1 to 2 weeks with recent discharge as noted with nephrostomy tube. #1. Acute Urinary Tract Infection/Pyelonephritis complicated by Nephrostomy tubes: Will admit to medical surgical floor, maintain on IV Rocephin pending speciation/sensitivity culture and recent records from [facility] upon ED evaluation remarkable, pending UCx, continue judicious IVFs, monitor I/Os. Bld cx x 2 obtained in the ED. family very specifically 1 to continue antibiotic therapy despite preference to transition to potentially inpatient hospice for intractable pain. #2. Intractable pain: Patient with metastatic colon cancer history status post hemicolectomy, ostomy and bilateral nephrostomy tube secondary to obstructive uropathy. Patient with ongoing flank, back pain with radiculopathy. We will have oral and IV narcotic therapy as needed with ulcerations pending response. Family given ongoing pain and difficulty caring for it at the skilled facility is requesting a.m. evaluation by hospice for inpatient hospice facility. #3. Hypokalemia: Admission K+ 3.0, magnesium level requested, supplementation given, repeat level in AM. #4. Metastatic colon cancer: Patient with metastatic colon cancer status post intervention with hemicolectomy, ostomy and bilateral nephrostomy tubes secondary to obstructive uropathy. Patient elected to defer any further treatment aside the surgeries per record. DNR CC status with planned evaluation for inpatient hospice facility in a.m. Patient had been at skilled facility with hospice previous to this. #5. Anxiety and depression: We will continue patient psychiatric regimen once clarified. #6. Chronic Kidney Disease Stage III, unclear subtype: Admission BUN/Cr 23/1.11, baseline renal function 1.0-1.2, repeat BMP in AM. #7. Chronic anemia, normocytic: Admission hemoglobin 9.2, baseline appears 9-10, stable, trend. #8. GERD: Will maintain on famotidine. #9. DVT prophylaxis: Defer given DNR-CC status with planned AM hospice evaluation. #10. CODE STATUS: Given patient planned evaluation for inpatient hospice facility in AM, reviewed code paperwork and patient signed DNR-CC form, placed on chart. Charges/Coding Visit Charges OBSV E&M: 61489 Initial observation care L3
[2021-08-28 21:51] LABS: Magnesium 1.4 mg/dL (1.6-2.6)
[2021-08-28] MEDS: Potassium Chloride Oral Tablet 20 MEQ 40 MEQ PO (23:33)
[2021-08-28] MEDS: 0.9% Saline Lock 10 ML Syringe IV ×2 (23:34→23:53)
[2021-08-28] MEDS: Famotidine 20 MG Tablet PO (23:34)
[2021-08-28] MEDS: 0.9% Normal Saline 1,000 ML 100 ML IV (23:35)
[2021-08-28] MEDS: Haloperidol Lactate 10 MG/5 ML UDC SL/PO (23:52)
[2021-08-28] MEDS: HYDROmorphone 0.5 MG/0.5 ML SYRINGE IV (23:54)
--- NOTE | 2021-08-29 03:15 | PCS.PANDOC ---
PANDEMIC DOCUMENTATION INITIATED: Date: 08/29/2021 Time: 0000
[2021-08-29 05:36] VITALS: BP 121/60; PULSE 87; RESP 16; TEMP 37.2; O2SAT 97
[2021-08-29 06:23] LABS: Absolute Lymphocyte Count 1.57 X10^3/uL (0.83-4.51); Absolute Neutrophil Count 6.7 X10^3/uL (2.0-7.7); Basophil# 0.06 X10^3/uL; Basophil% 0.6 % (0-1); Eosinophil# 0.18 X10^3/uL; Eosinophils% 1.9 % (0-5); Hematocrit 26.1 % (37-47); Lymphocyte # 1.57 X10^3/ul (0.83-4.51); Lymphocyte % 16.6 % (19-41); Mean Corp Hgb Conc 30.7 g/dL (32-36); Mean Corpuscular Hgb 28.9 pg (27.0-32.0); Mean Corpuscular Volume 94.2 fL (81-99); Mean Platelet Vol. 10.1 fl (6.2-12.0); Monocyte% 9.5 % (0-10); NRBC Flagged by Analyzer 0 % (0-5); Neutrophil % 70.9 % (47-70); Platelet Count 312 K/mm3 (150-450); RBC Distribution Width CV 13.5 % (11.6-14.6); RBC Distribution Width SD 46.5 fl (35.1-43.9); Red Blood Count 2.77 M/mm3 (4.2-5.4); White Blood Count 9.5 K/mm3 (4.4-11.0)
[2021-08-29 06:41] LABS: ALB/GLOB Ratio 0.5 RATIO (0.9-2.4); AST(SGOT) 14 U/L (15-37); Alanine Aminotransfer ALT/SGPT 12 U/L (13-56); Alkaline Phosphatase 120 U/L (45-117); Anion Gap 5 (5-15); BUN 18 mg/dL (7-18); BUN/Creat Ratio 18.5 RATIO (10-20); Calcium,Total 8.5 mg/dL (8.5-10.1); Chloride 106 mmol/L (98-107); Creatinine, Serum 0.97 mg/dL (0.55-1.02); EST Glomerular Filtration Rate 59 mL/min (>60); Est Glom Filt Rate - Afr Amer 71 mL/min (>60); Estimated Creatinine Clearance 41.28 ml/min; Glucose 98 mg/dL (74-106); Potassium 3.8 mmol/L (3.5-5.1); Sodium Level 136 mmol/L (136-145)
[2021-08-29 08:23] VITALS: BP 125/63; PULSE 89; RESP 18; TEMP 36.6; O2SAT 96; O2SAT 97
[2021-08-29] MEDS: 0.9% Normal Saline 1,000 ML 100 ML IV (09:23)
[2021-08-29] MEDS: Famotidine 20 MG Tablet PO ×2 (10:17→23:19)
[2021-08-29] MEDS: Menthol/Lanolin/Calamine/Znox 113 GM Tube 1 APPLIC TOPICAL ×3 (10:17→23:18)
--- NOTE | 2021-08-29 10:25 | CASEMGMT ---
Social Work Note KETURAH reviewed chart. Pt came from [facility] ([facility]), appears to of had Hospice services before. KETURAH placed a call to Evangelina at [facility]. Evangelina confirms pt came from [facility] and was active with [facility]. Evangelina states pt can return to [facility] at discharge. KETURAH placed a call to [facility] and provided referral. KETURAH faxed referral to [facility]. SW to continue to follow. Kelsey Stephens CLINICAL ENGINEERING MANAGER, WIRE COILER
[2021-08-29] MEDS: HYDROmorphone 0.5 MG/0.5 ML SYRINGE IV ×3 (10:27→18:11)
[2021-08-29] MEDS: Ondansetron 4 MG/2 ML Vial IV (10:27)
[2021-08-29] MEDS: 0.9% Saline Lock 10 ML Syringe IV ×3 (10:27→18:11)
--- NOTE | 2021-08-29 12:00 | CHAPLAIN ---
Type of Pastoral Visit _x__ Initial Visit ___ Follow-up Visit ___ On-call Visit ___ General Patient Visit ___ Spiritual Assessment ___ Family Conference ___ Bereavement ___ Rapid Response ___ Code Blue ___ Other (describe below) Pastoral Care Referral From _x__ Patient ___ Family ___ Nurse ___ Physician ___ District Fire Chief ___ Asphalt Dauber ___ Other (describe below) Sacrament/Intervention _x__ Active listening ___ Anointing ___ Caodaism ___ Bereavement ___ Communion ___ Candace exploration ___ ___ Life review _x__ Prayer ___ Reconciliation ___ Sacrament of Sick _x__ Supportive presence ___ Wedding ___ Other (describe below) Pastoral Comments patient is awake and resting in bed; pt states that her pain is gone and she is feeling much better; pt states that she will either be returning to [facility] or going to the hospice unit; when asked about her feelings going into hospice the patient reports probably not going there since my pain is better but I'm fine with it; pt says she has no concerns but would like prayer support at this time
[2021-08-29 13:52] VITALS: BP 120/53; PULSE 94; RESP 16; TEMP 36.9; O2SAT 98
[2021-08-29] MEDS: proCHLORPERazine 10 MG/2 ML Vial 5 MG IV (13:55)
--- NOTE | 2021-08-29 14:26 | PCM.PN.HOSP ---
Subjective Subjective Patient reports that her pain is much better controlled at this time. She indicates to me she is interested in [facility] when I talk to her but after meeting with hospice she does not want to enroll on hospice as they will not treat her with antibiotics and she would like continued antibiotic treatment. However, her daughter has apparently called in and does not want her to go [facility] to [facility] if she needs IV antibiotics. The patient has a notation that she is allergic to antibiotics as they cause vomiting however I am clear if this is all antibiotics or only certain ones and will discuss this further with the patient before we make a recommendation for oral antibiotics at discharge Objective Data Objective Data Vital Signs: Vital Signs Temp Pulse Resp BP Pulse Ox 98.5 F 94 16 120/53 L 98 08/29/21 13:52 08/29/21 13:52 08/29/21 13:52 08/29/21 13:52 08/29/21 13:52 Oxygen Delivery Method Room Air Weight: 62.142 kg Body Mass Index (BMI) 23.5 Intake & Output: Intake and Output for Last 24 Hours 08/27/21 08/28/21 08/29/21 23:59 23:59 23:59 Intake Total 1048.33 / 1048.33 1580 / 1580 Output Total 300 / 300 650 / 650 Balance 748.33 / 748.33 930 / 930 Lab / Micro Data Result Diagrams: 08/29/21 05:19 08/29/21 05:19 Labs: Laboratory Results - last 24 hr 08/28/21 18:52: WBC 9.6, RBC 3.13 L, Hgb 9.2 L, Hct 29.2 L, MCV 93.3, MCH 29.4, MCHC 31.5 L, RDW Std Deviation 46.5 H, RDW Coeff of Malathi 13.7, Plt Count 326, MPV 10.0, Immature Gran % (Auto) 0.500, Neut % (Auto) 72.3 H, Lymph % (Auto) 15.8 L, [place] % (Auto) 8.6, Eos % (Auto) 2.2, Baso % (Auto) 0.6, Absolute Neuts (auto) 7.0, Absolute Lymphs (auto) 1.52, Nucleated RBC % 0 08/28/21 18:52: Sodium 135 L, Potassium 3.0 L, Chloride 102, Carbon Dioxide 24.0, Anion Gap 9, BUN 23 H, Creatinine 1.11 H, Estim Creat Clear Calc 36.07, Est GFR (MDRD) Af Amer 61, Est GFR (MDRD) Non-Af 51 L, BUN/Creatinine Ratio 20.7 H, Glucose 122 H, Calcium 8.6 08/28/21 18:52: Lactic Acid 0.9 08/28/21 18:52: Magnesium 1.4 L 08/28/21 19:18: Urine Color Milagros, Urine Clarity Cloudy, Urine pH 8.0, Ur Specific [place] 1.015, Urine Protein 500 H, Urine Glucose (UA) Normal, Urine Ketones 5 H, Urine Occult Blood 250 H, Urine Nitrite Positive H, Urine Bilirubin Negative, Urine Urobilinogen Normal, Ur Leukocyte Esterase 500 H, Urine RBC > 100 SEEN, Urine WBC 50-100 SEEN, Ur Squamous Epith Cells 0-5 SEEN, Amorphous Sediment 2+ PHOS, Urine Bacteria 2+, Urine Mucus 0 SEEN 08/28/21 19:18: Urine Color Yellow, Urine Clarity Cloudy, Urine pH 7.0, Ur Specific [place] 1.010, Urine Protein 30 H, Urine Glucose (UA) Normal, Urine Ketones Negative, Urine Occult Blood 250 H, Urine Nitrite Positive H, Urine Bilirubin Negative, Urine Urobilinogen Normal, Ur Leukocyte Esterase 500 H, Urine RBC 25-50 SEEN, Urine WBC 50-100 SEEN, Ur Squamous Epith Cells 0-5 SEEN, Amorphous Sediment 1+ PHOS, Urine Bacteria 1+, Urine Mucus 0 SEEN 08/29/21 05:19: WBC 9.5, RBC 2.77 L, Hgb 8.0 L, Hct 26.1 L, MCV 94.2, MCH 28.9, MCHC 30.7 L, RDW Std Deviation 46.5 H, RDW Coeff of Malathi 13.5, Plt Count 312, MPV 10.1, Immature Gran % (Auto) 0.500, Neut % (Auto) 70.9 H, Lymph % (Auto) 16.6 L, [place] % (Auto) 9.5, Eos % (Auto) 1.9, Baso % (Auto) 0.6, Absolute Neuts (auto) 6.7, Absolute Lymphs (auto) 1.57, Nucleated RBC % 0 08/29/21 05:19: Sodium 136, Potassium 3.8, Chloride 106, Carbon Dioxide 25.0, Anion Gap 5, BUN 18, Creatinine 0.97, Estim Creat Clear Calc 41.28, Est GFR (MDRD) Af Amer 71, Est GFR (MDRD) Non-Af 59 L, BUN/Creatinine Ratio 18.5, Glucose 98, Calcium 8.5, Total Bilirubin 0.30, AST 14 L, ALT 12 L, Alkaline Phosphatase 120 H, Total Protein 6.0 L, Albumin 2.0 L, Globulin 4.0, Albumin/Globulin Ratio 0.5 L Micro: Microbiology 08/28/21 19:18 Urine, Nephrostomy Urine Culture - Preliminary Gram negative dane 08/28/21 19:18 Urine, Nephrostomy Urine Culture - Preliminary GNR lactose director radiation oncology Physical Exam Const alert, oriented x3, no apparent distress and average body habitus Exam Limitations: no limitations HEENT head/scalp atraumatic, moist oral mucous membranes and oropharynx normal Head and Scalp: normocephalic Resp normal respiratory effort, no retractions, no use of accessory muscles and clear to auscultation bilaterally Auscultation: Negative for crackles, rales, rhonchi or wheezes Assessment & Plan Assessment/Plan (1) Complicated urinary tract infection: (2) Colon cancer metastasized to multiple sites: PLAN: Acute urinary tract infection/pyelonephritis complicated by bilateral nephrostomy tubes -Cultures are pending however preliminary Gram stain shows gram-negative dane -Continue ceftriaxone at this time -We have no previous cultures to compare -Continue IV fluids but decrease -Cultures are pending Intractable pain -Much improved -Pain is currently controlled with oral narcotic therapy -Add scheduled OxyContin 10 mg p.o. twice daily along with continued as needed breakthrough oxycodone -Evaluated by hospice but patient is currently deferring as she would like continued antibiotic therapy Metastatic colon cancer -Patient is no longer undergoing therapy -Hospice was consulted but the patient would like to continue to receive antibiotics and therefore has decided not to enroll in hospice -DNR CCA -No current pain--> well managed with current antibiotics Acute unilateral obstructive uropathy -Currently being managed with a nephrostomy tube -Follows with nephrology -Recommend outpatient follow-up CKD stage 3a -Baseline serum creatinine appears to be 0.9 -We will give gentle hydration at this time and monitor serum creatinine -Urostomy output is good -Repeat BMP in a.m. Chronic normocytic anemia -Suspect multifactorial with metastatic colon CA and CKD at baseline GERD -Continue famotidine DVT prophylaxis -Lovenox daily -SCDs CODE STATUS -We will change from DNR CCA to DNR CCA status given conversation with hospice and patient wanting to return to facility with antibiotics Discussed with daughter on 08/29/2021 @ [id number] Charges/Coding Visit Charges Inpatient E&M: 69080 Subs Hosp L2
--- NOTE | 2021-08-29 15:31 | CASEMGMT ---
Social Work Note KETURAH spoke with Samantha, Patient Liaison, from [facility]. Samantha states that she spoke with pt. Pt wants to continue IV antibiotics and Samantha states she spoke with Dr. Chauhan at [facility] about IV antibiotics and he will not allow pt to be on Hospice with IV antibiotics. Samantha states that pt states that she will continue to come to the hospital to get IV antibiotics when needed. Samantha states that at this time, pt didn't sign with Hospice. SW in to speak with pt. Pt confirms that she came from [facility]. Pt states that she wants to continue to receive IV antibiotics and Hospice told her that she cannot be on IV antibiotics and receive Hospice services. Pt states that she would like to return to [facility] at discharge. Pt gave this worker permission to call her daughter Luna to update. KETURAH placed a call to Evangelina at [facility] and updated her on above information. Evangelina states pt can return when pt is medically cleared. KETURAH updated physician, plan is for pt to return to [facility] tomorrow. KETURAH placed a call to pt's daughter Luna and updated her on above. Luna states that she has spoken to Hospice and she has spoken to the physician. Luna states she would like to see pt return to [facility] with Hospice. KETURAH faxed updated clinicals to [facility]. Plan: Return to [facility] with or without Hospice services Kelsey Stephens PUBLIC SERVICES ASSISTANT, POWERHOUSE TENDER
--- NOTE | 2021-08-29 16:16 | CASEMGMT ---
SHEREEN CM in to discuss GALLEGOS form with patient. RN CM explained GALLEGOS form, patient voiced understanding. Pt signed form and filed in chart. Pt provided with a copy of signed GALLEGOS form. Patient had no further questions or concerns at this time.
[2021-08-29 18:09] VITALS: BP 107/75; PULSE 91; RESP 18; TEMP 36.8; O2SAT 100
[2021-08-29] MEDS: Haloperidol Lactate 10 MG/5 ML UDC SL/PO (18:11)
[2021-08-29] MEDS: oxyCODONE HCl Cr 10 MG Tablet PO (23:19)
[2021-08-29] MEDS: Ceftriaxone 1 GM/50 ML BAG IV (23:20)
[2021-08-29 23:32] VITALS: BP 132/65; PULSE 89; RESP 16; TEMP 36.4; O2SAT 100
[2021-08-30 05:50] LABS: Absolute Lymphocyte Count 1.24 X10^3/uL (0.83-4.51); Absolute Neutrophil Count 5.9 X10^3/uL (2.0-7.7); Basophil# 0.02 X10^3/uL; Basophil% 0.2 % (0-1); Eosinophil# 0.51 X10^3/uL; Eosinophils% 6.1 % (0-5); Hematocrit 23.9 % (37-47); Hemoglobin 7.9 g/dL (12.0-15.0); Lymphocyte # 1.24 X10^3/ul (0.83-4.51); Lymphocyte % 14.7 % (19-41); Mean Corp Hgb Conc 33.1 g/dL (32-36); Mean Corpuscular Hgb 29.7 pg (27.0-32.0); Mean Corpuscular Volume 89.8 fL (81-99); Monocyte# 0.74 X10^3/uL; Monocyte% 8.8 % (0-10); NRBC Flagged by Analyzer 0 % (0-5); Neutrophil # 5.85 X10^3/uL (2.7-7.7); Neutrophil % 69.6 % (47-70); Platelet Count 291 K/mm3 (150-450); RBC Distribution Width CV 13.7 % (11.6-14.6); RBC Distribution Width SD 44.6 fl (35.1-43.9); Red Blood Count 2.66 M/mm3 (4.2-5.4); White Blood Count 8.4 K/mm3 (4.4-11.0)
[2021-08-30 05:52] VITALS: BP 131/67; PULSE 84; RESP 16; TEMP 36.9; O2SAT 99
[2021-08-30] MEDS: Menthol/Lanolin/Calamine/Znox 113 GM Tube 1 APPLIC TOPICAL ×2 (05:54→15:40)
[2021-08-30] MEDS: 0.9% Saline Lock 10 ML Syringe IV (06:03)
[2021-08-30] MEDS: HYDROmorphone 0.5 MG/0.5 ML SYRINGE IV ×3 (06:04→17:39)
[2021-08-30 06:37] LABS: Anion Gap 5 (5-15); BUN 13 mg/dL (7-18); Calcium,Total 8.7 mg/dL (8.5-10.1); Chloride 110 mmol/L (98-107); Creatinine, Serum 0.93 mg/dL (0.55-1.02); EST Glomerular Filtration Rate 62 mL/min (>60); Est Glom Filt Rate - Afr Amer 75 mL/min (>60); Estimated Creatinine Clearance 43.05 ml/min; Glucose 103 mg/dL (74-106); Potassium 3.6 mmol/L (3.5-5.1); Sodium Level 139 mmol/L (136-145)
--- NOTE | 2021-08-30 10:10 | CASEMGMT ---
Social Work Note KETURAH participated in rounds with physician. Pt to discharge back to [facility] today. The plan is for pt to complete current antibiotic treatment and then pt to enroll back in Hospice and then not disenroll again. KETURAH placed a call to Evangelina at [facility] and let her know pt will return today. Kelsey Stephens DEPUTY K 9, REFINING STILL OPERATOR
[2021-08-30] MEDS: Famotidine 20 MG Tablet PO (10:50)
[2021-08-30] MEDS: oxyCODONE HCl Cr 10 MG Tablet PO (10:50)
[2021-08-30] MEDS: Ondansetron 4 MG/2 ML Vial IV (10:54)
[2021-08-30 10:57] VITALS: BP 127/68; PULSE 90; RESP 18; TEMP 37.7; O2SAT 97
--- NOTE | 2021-08-30 11:02 | PCM.CONS.GEN ---
Assessment & Plan Assessment/Plan (1) Complicated urinary tract infection: PLAN: Ucx with pseudomonas and other side with esbl klebs. Did not tolerate cipro po in the past. Will order 10 days of meropenem, stop date 09/09/21. Has had covid shot x2, not interested in booster. Will follow, thank you, d/w Dr. Evans and case manager specialist HPI Consult Data Date of Consult: 08/30/21 HPI Narrative HPI Narrative: LISA NG, is a 76 F with metastatic colon cancer, on hospice, h/o recurrent uti with bilat neph tubes in place, presented 08/28 to ED with about one week of progressive, severe bilat flank pain (R worse than L) with foul/bloody urine present. Some chills. No issues with L chest tunneled line. Admitted here, now on ertapenem, feeling better. Daughter reports she had n/v with augmentin and cipro in the past. Full ROS performed and neg except as noted above. [facility] Medical History Anemia Anxiety Attention to nephrostomy CKD (chronic kidney disease) stage 3, GFR 30-59 ml/min Colon cancer Diverticula of intestine Gastro-esophageal reflux disease without esophagitis Heart disease HTN (hypertension) Hydronephrosis Hypo-osmolality and hyponatremia Kidney disease Malignant neoplasm Nausea & vomiting Obstructive and reflux uropathy Protein calorie malnutrition UTI (urinary tract infection) Weakness Home Medications acetaminophen [Tylenol] 650 mg PO Q4H PRN 05/24/21 [History Last Taken Unknown] hydromorphone [Dilaudid] 6 mg PO Q4H 08/29/21 [History Last Taken Unknown] hydromorphone [Dilaudid] 6 mg PO Q4H PRN 08/29/21 [History Last Taken Unknown] hyoscyamine sulfate [Levsin] 0.125 mg PO Q4H PRN 08/29/21 [History Last Taken Unknown] lorazepam [Ativan] 0.5 mg PO Q4H PRN 08/29/21 [History Last Taken Unknown] ondansetron [Zofran ODT] 8 mg PO Q8H PRN 08/29/21 [History Last Taken Unknown] promethazine [Phenergan] 25 mg PO Q6H PRN 08/29/21 [History Last Taken Unknown] sennosides [senna] 8.6 mg PO BID PRN 08/29/21 [History Last Taken Unknown] meropenem 1 g IV Q8H 10 Days #30 ea 08/30/21 [Rx Last Taken Unknown] Allergy/AdvReac Type Severity Reaction Status Date / Time ANTIBIOTICS AdvReac Vomiting Uncoded 05/24/21 17:36 Family History (Updated 08/28/21 @ 22:[address] Rachel Kennedy MD) Mother Diabetes Father Leukemia Surgical History (Updated 08/28/21 @ 22:[address] Rachel Kennedy MD) H/O left hemicolectomy History of creation of ostomy History of nephrostomy Social History (Updated 08/28/21 @ 22:[address] Rachel Kennedy MD) household members: significant other Smoking Status: Never smoker alcohol intake: never substance use type: does not use Physical Exam Const alert, oriented x3 and no apparent distress General Appearance: cooperative Exam Limitations: no limitations HEENT normocephalic and head/scalp atraumatic Eyes PERRL and EOMs intact bilaterally Neck supple and No nodes Resp normal air movement and clear to auscultation bilaterally Cardio regular rate and regular rhythm GI soft to palpation, non-tender and non-distended Extremity no clubbing, cyanosis or edema Skin no rashes or lesions noted Skin Narrative: L chest line no inflammation or drainage Neuro CN's II-XII intact bilaterally Lab / Micro Data Result Diagrams: 08/30/21 05:39 08/30/21 05:39 Labs: Laboratory Results - last 24 hr 08/28/21 19:18: Urine Color Milagros, Urine Clarity Cloudy, Urine pH 8.0, Ur Specific [place] 1.015, Urine Protein 500 H, Urine Glucose (UA) Normal, Urine Ketones 5 H, Urine Occult Blood 250 H, Urine Nitrite Positive H, Urine Bilirubin Negative, Urine Urobilinogen Normal, Ur Leukocyte Esterase 500 H, Urine RBC > 100 SEEN, Urine WBC 50-100 SEEN, Ur Squamous Epith Cells 0-5 SEEN, Amorphous Sediment 2+ PHOS, Urine Bacteria 2+, Urine Mucus 0 SEEN 08/28/21 19:18: Urine Color Yellow, Urine Clarity Cloudy, Urine pH 7.0, Ur Specific [place] 1.010, Urine Protein 30 H, Urine Glucose (UA) Normal, Urine Ketones Negative, Urine Occult Blood 250 H, Urine Nitrite Positive H, Urine Bilirubin Negative, Urine Urobilinogen Normal, Ur Leukocyte Esterase 500 H, Urine RBC 25-50 SEEN, Urine WBC 50-100 SEEN, Ur Squamous Epith Cells 0-5 SEEN, Amorphous Sediment 1+ PHOS, Urine Bacteria 1+, Urine Mucus 0 SEEN 08/30/21 05:39: WBC 8.4, RBC 2.66 L, Hgb 7.9 L, Hct 23.9 L, MCV 89.8, MCH 29.7, MCHC 33.1 D, RDW Std Deviation 44.6 H, RDW Coeff of Malathi 13.7, Plt Count 291, MPV 10.0, Immature Gran % (Auto) 0.600, Neut % (Auto) 69.6, Lymph % (Auto) 14.7 L, [place] % (Auto) 8.8, Eos % (Auto) 6.1 H, Baso % (Auto) 0.2, Absolute Neuts (auto) 5.9, Absolute Lymphs (auto) 1.24, Nucleated RBC % 0 08/30/21 05:39: Sodium 139, Potassium 3.6, Chloride 110 H, Carbon Dioxide 24.0, Anion Gap 5, BUN 13, Creatinine 0.93, Estim Creat Clear Calc 43.05, Est GFR (MDRD) Af Amer 75, Est GFR (MDRD) Non-Af 62, BUN/Creatinine Ratio 14.0, Glucose 103, Calcium 8.7 Micro: Microbiology 08/28/21 19:18 Urine, Nephrostomy Urine Culture - Preliminary Klebsiella pneumoniae sp pneum 08/28/21 19:18 Urine, Nephrostomy Urine Culture - Preliminary Pseudomonas aeroginosa
--- NOTE | 2021-08-30 11:20 | PCM.DC.SUM ---
Providers Date of Admission: 08/28/21 Date of Discharge: 08/30/21 Primary Care Physician: ELTON CRONIN Consultations 08/28/21 22:40 Consult: Hospice / Palliative Care Routine Consulting Provider: [facility] Reason for Consult: Hospice patient, brought for pain control by family EMERGENT Consult: No Notified: Yes Date Notified: 08/29/21 Time Notified: 10:00 Method of Notification: office called by 08/30/21 08:45 Consult: Infectious Disease Routine Consulting Provider: Shailesh Aquino Reason for Consult: ESBL UTI with B Nephrostomy tubes EMERGENT Consult: No Notified: Yes Date Notified: 08/30/21 Time Notified: 09:41 Method of Notification: Text Reason For Visit: INTRACTABLE PAIN, UTI Diagnosis Discharge Diagnosis (1) Complicated urinary tract infection: Status: Acute Code(s): N39.0 - Urinary tract infection, site not specified Medications at Discharge Home Medications acetaminophen [Tylenol] 650 mg PO Q4H PRN 05/24/21 hydromorphone [Dilaudid] 6 mg PO Q4H PRN 08/29/21 hyoscyamine sulfate [Levsin] 0.125 mg PO Q4H PRN 08/29/21 lorazepam [Ativan] 0.5 mg PO Q4H PRN 08/29/21 ondansetron 8 mg PO Q8H PRN 08/29/21 promethazine 25 mg PO Q6H PRN 08/29/21 sennosides [senna] 8.6 mg PO BID PRN 08/29/21 meropenem 1 g IV Q8H 10 Days #30 ea 08/30/21 Hospital Course Operations None Procedures None Summary of Care Provided Minutes Spent on Discharge: 42 Hospital Course: Is a 76-year-old white female who presented to the emergency department was coming hospital on 08/28/2021 with intractable back and flank pain. She has a history of metastatic colon cancer status post hemicolectomy and ostomy with ureteral obstruction status post bilateral nephrostomy tube placement who has had issues with recurrent urinary tract infections since her nephrostomy tubes have been placed. She is no longer undergoing treatment for her metastatic colon CA as there are no other treatment options and had been enrolled in hospice at the [facility] facility but it sounds like she panicked secondary to severe pain and nausea and elected to come to the hospital for further care. The patient reported that she been having foul-smelling urine from her nephrostomy tubes for the past several days but denied any fever or chills. She had been having ongoing intractable nausea and vomiting as well. Upon further conversation with the daughter the patient has had some functional decline and her p.o. intake is overall fairly poor. Her daughter is under the realization that her mother's life expectancy is limited and feels hospice is appropriate however her mother wanted to come to the emergency department and therefore hospice was revoked for this. In the ED her vital signs were stable her CBC showed baseline abnormalities with no elevated white count. Her BMP was overall unimpressive with stable BUN and creatinine elevation and her lactic acid was normal. A urinalysis was performed from both nephrostomy tubes and they were consistent with infection and therefore culture was sent. She was started on IV Rocephin admitted to the medical floor. We are able to control her pain during her hospital course and her p.o. intake did improve without any significant nausea vomiting to her nurse today however p.o. intake is overall poor. She initially met with hospice and did not want to continue hospice based on the fact she could not get IV antibiotics. I further discussed this with her and she is accepting of reinitiating hospice after she completes this course of antibiotic treatment with the understanding that she would not represent to the hospital for further infections and if a recurrent infection occurred focus on comfort with medications would be pursued rather than aggressive care with IV antibiotics. Her urine culture showed Klebsiella and Pseudomonas that were both ESBL morning news producer's and ID was therefore consulted. They recommended the initiation of meropenem 1 g twice daily to be given for a total of 10 days. She has a tunneled central venous catheter that was placed at [facility] from her recent hospitalization there that is clean and dry and antibiotics will be reinitiated via this. [facility] on 08/30/2021 for again antibiotics for 10 days with reinitiation of hospice following. The plan was discussed further with the daughter and she is agreeable as well. Discharge diagnoses: Acute Klebsiella/Pseudomonas complicated urinary tract infection Pyelonephritis Obstructive uropathy status post bilateral nephrostomy tubes Intractable pain-resolved Metastatic colon cancer CKD stage IIIa Chronic normocytic anemia GERD Anxiety Nausea and vomiting-improved Physical Exam Const alert, oriented x3, no apparent distress and average body habitus Constitutional Narrative: Elderly white female sitting up in bed, currently appears comfortable, nontoxic, very pleasant General Appearance: cooperative, comfortable, well kempt and well developed Orientation / Consciousness: awake Exam Limitations: no limitations HEENT normocephalic, head/scalp atraumatic, hearing grossly normal bilaterally, moist oral mucous membranes and oropharynx normal Eyes PERRL and EOMs intact bilaterally Eyes Narrative: Mild conjunctival pallor, no scleral icterus Neck no lymphadenopathy, supple and no JVD Neck Narrative: Trachea midline, no thyroid enlargement Resp normal respiratory effort, no retractions, no use of accessory muscles and clear to auscultation bilaterally Auscultation: Negative for crackles, rales, rhonchi or wheezes Cardio regular rate, regular rhythm, S1 normal heart sound, S2 normal heart sound, no murmurs, no rub, no gallops, no clicks and no JVD GI normal to inspection, nondistended, normoactive bowel sounds, soft to palpation, non-tender and non-distended GI Narrative: Ostomy bag in place with output Extremity normal to inspection, full ROM and no clubbing, cyanosis or edema Skin no rashes or lesions noted, no wounds, skin turgor normal and no jaundice Neuro oriented x3, CN's II-XII intact bilaterally, moves all extremities and no focal motor deficits Neuro Narrative: Significant generalized weakness Sensorium / Orientation: awake and alert Speech: speech normal Psych Psych Narrative: Very pleasant and appropriately interactive Weight / BMI Weight Weight: 62.142 kg Body Mass Index (BMI) 23.5 ABG / Lab / Microbiology Data Result Diagrams: 08/30/21 05:39 08/30/21 05:39 Laboratory: Laboratory Results - last 24 hr 08/28/21 19:18: Urine Color Milagros, Urine Clarity Cloudy, Urine pH 8.0, Ur Specific [place] 1.015, Urine Protein 500 H, Urine Glucose (UA) Normal, Urine Ketones 5 H, Urine Occult Blood 250 H, Urine Nitrite Positive H, Urine Bilirubin Negative, Urine Urobilinogen Normal, Ur Leukocyte Esterase 500 H, Urine RBC > 100 SEEN, Urine WBC 50-100 SEEN, Ur Squamous Epith Cells 0-5 SEEN, Amorphous Sediment 2+ PHOS, Urine Bacteria 2+, Urine Mucus 0 SEEN 08/28/21 19:18: Urine Color Yellow, Urine Clarity Cloudy, Urine pH 7.0, Ur Specific [place] 1.010, Urine Protein 30 H, Urine Glucose (UA) Normal, Urine Ketones Negative, Urine Occult Blood 250 H, Urine Nitrite Positive H, Urine Bilirubin Negative, Urine Urobilinogen Normal, Ur Leukocyte Esterase 500 H, Urine RBC 25-50 SEEN, Urine WBC 50-100 SEEN, Ur Squamous Epith Cells 0-5 SEEN, Amorphous Sediment 1+ PHOS, Urine Bacteria 1+, Urine Mucus 0 SEEN 08/30/21 05:39: WBC 8.4, RBC 2.66 L, Hgb 7.9 L, Hct 23.9 L, MCV 89.8, MCH 29.7, MCHC 33.1 D, RDW Std Deviation 44.6 H, RDW Coeff of Malathi 13.7, Plt Count 291, MPV 10.0, Immature Gran % (Auto) 0.600, Neut % (Auto) 69.6, Lymph % (Auto) 14.7 L, [place] % (Auto) 8.8, Eos % (Auto) 6.1 H, Baso % (Auto) 0.2, Absolute Neuts (auto) 5.9, Absolute Lymphs (auto) 1.24, Nucleated RBC % 0 08/30/21 05:39: Sodium 139, Potassium 3.6, Chloride 110 H, Carbon Dioxide 24.0, Anion Gap 5, BUN 13, Creatinine 0.93, Estim Creat Clear Calc 43.05, Est GFR (MDRD) Af Amer 75, Est GFR (MDRD) Non-Af 62, BUN/Creatinine Ratio 14.0, Glucose 103, Calcium 8.7 Microbiology: Microbiology 08/28/21 19:18 Urine, Nephrostomy Urine Culture - Preliminary Klebsiella pneumoniae sp pneum 08/28/21 19:18 Urine, Nephrostomy Urine Culture - Preliminary Pseudomonas aeroginosa D/C Instructions Discharge Diet: No restrictions Discharge Activity: Return to Normal Activity Meaningful Use Info Meaningful Use Diagnoses (Choose all that apply): None applicable Discharge Plan Admission Admit Date/Time: 08/28/21 21:23 Primary Reason for Your Visit: Intractable flank/back pain Attending Provider: Samia Evans Consulting Providers: Sylvia Karimi ; Perfecto Aldana ; Krystal Mitchell ; Selam Talavera ; Martita Simms ; Maye Everett SOCIOLOGY RESEARCH ASSISTANT ; Shailesh Aquino Instructions Additional Instructions / Restrictions: 1. Hospice consult needs to be placed as patient has agreed to complete this urinary tract infection antibiotic course and then reenroll in hospice to be maintained in hospice without return to the hospital Discharge Orders/Prescriptions Prescriptions: New meropenem 1 gram recon soln 1 g IV Q8H 10 Days Qty: 30 RF: 0 Continued lorazepam [Ativan] 0.5 mg Tablet 0.5 mg PO Q4H PRN (Reason: restlessness) RF: 0 hydromorphone [Dilaudid] 4 mg Tablet 6 mg PO Q4H PRN (Reason: Pain) RF: 0 hyoscyamine sulfate [Levsin] 0.125 mg Tablet 0.125 mg PO Q4H PRN (Reason: secrections) RF: 0 ondansetron 8 mg Tablet,Disintegrating 8 mg PO Q8H PRN (Reason: nauea) RF: 0 promethazine 25 mg Tablet 25 mg PO Q6H PRN (Reason: Nausea) RF: 0 sennosides [senna] 8.6 mg Tablet 8.6 mg PO BID PRN (Reason: Constipation) RF: 0 Discontinued hydromorphone [Dilaudid] 4 mg Tablet 6 mg PO Q4H RF: 0 No Action acetaminophen [Tylenol] 325 mg Tablet 650 mg PO Q4H PRN (Reason: Pain) RF: 0 Referrals / Follow Up: ELTON CRONIN [Other] ELTON CRONIN [Other] Disposition Disposition (needs filled in before D/C Order can be placed): Group Home Facility Charges/Coding Visit Charges Inpatient E&M: 71299 SNF Disch >30 Min
--- NOTE | 2021-08-30 11:36 | PCM.TXEXTCAR ---
Diet 08/28/21 22:40 Diet: Regular - General Food consistency:: Regular Liquid Consistency:: Regular/Thin Routine Orders/Code Status O2 Frequency: PRN (For comfort) Code Status: DNRCC (Reconsult to hospice after antibiotics have been completed to reenroll) Therapies Weight Bearing: Full weight bearing Problem/Diagnosis (1) Complicated urinary tract infection: Status: Acute Allergies/Procedures Done in Hospital Allergies ANTIBIOTICS Adverse Reaction (Uncoded 05/24/21 17:36) Vomiting PT SUÁREZ CHART STATES NO ACTIVE KNOWN ALLERGIES Procedures: None Type of Care/Length of Stay Estimated LOS: More Than 30 Days Type of Care Needed: Skilled Rehab Potential: Poor Prognosis: Poor Additional Orders/Day of Discharge Day of Discharge: 08/30/21 Discharge Plan Admission Admit Date/Time: 08/28/21 21:23 Primary Reason for Your Visit: Intractable flank/back pain Attending Provider: Samia Evans Consulting Providers: Sylvia Karimi ; Perfecto Aldana ; Krystal Mitchell ; Selam Talavera ; Martita Simms ; Maye Everett REMOTE MEDICAL CODER ; Shailesh Aquino Instructions Additional Instructions / Restrictions: 1. Hospice consult needs to be placed as patient has agreed to complete this urinary tract infection antibiotic course and then reenroll in hospice to be maintained in hospice without return to the hospital Discharge Orders/Prescriptions Prescriptions: New meropenem 1 gram recon soln 1 g IV Q8H 10 Days Qty: 30 RF: 0 Continued lorazepam [Ativan] 0.5 mg Tablet 0.5 mg PO Q4H PRN (Reason: restlessness) RF: 0 hydromorphone [Dilaudid] 4 mg Tablet 6 mg PO Q4H PRN (Reason: Pain) RF: 0 hyoscyamine sulfate [Levsin] 0.125 mg Tablet 0.125 mg PO Q4H PRN (Reason: secrections) RF: 0 ondansetron 8 mg Tablet,Disintegrating 8 mg PO Q8H PRN (Reason: nauea) RF: 0 promethazine 25 mg Tablet 25 mg PO Q6H PRN (Reason: Nausea) RF: 0 sennosides [senna] 8.6 mg Tablet 8.6 mg PO BID PRN (Reason: Constipation) RF: 0 Discontinued hydromorphone [Dilaudid] 4 mg Tablet 6 mg PO Q4H RF: 0 No Action acetaminophen [Tylenol] 325 mg Tablet 650 mg PO Q4H PRN (Reason: Pain) RF: 0 Referrals / Follow Up: ELTON CRONIN [Other] ELTON CRONIN [Other] Disposition Disposition (needs filled in before D/C Order can be placed): Nursing Home Facility
--- NOTE | 2021-08-30 12:13 | CASEMGMT ---
Addendum entered by Kelsey Stephens 08/30/21 12:34: SW had also informed Evangelina to make sure pt's medication is at SNF and that the plan is for pt to continue current Antibiotic treatment and once the treatment is done, pt to be reevaluated by Hospice and to not disenroll from Hospice again. Original Note: Social Work Note SW spent much time talking with Evangelina from [facility] regarding pt's discharge. After much discussion, pt is able to return to [facility] with [facility] if an RN at [facility] starts the first dose. Evangelina states RN has to start the first dose and then DYE MAKER who are IV certified can continue the doses through the [facility]. KETURAH updated physician. RN to start first dose. Pt can transport via cot. Pt's medication runs for about 4 hours. KETURAH will arrange transportation. Plan: Return to [facility] skilled today Kelsey Stephens QUALITY ASSURANCE SPECIALIST, INSTRUCTIONAL CONSULTANT
[2021-08-30] MEDS: proCHLORPERazine 10 MG/2 ML Vial 5 MG IV ×2 (12:14→17:39)
--- NOTE | 2021-08-30 15:10 | CASEMGMT ---
Social Work Note KETURAH faxed completed discharge paperwork to [facility] including transfer to extended care facility, signed medication list, any scripts, and COVID test/tool. Original in SNF folder and copy on pt's chart. KETURAH spoke with RN, pt to transport via cot. SW accessed trip assist and arranged transportation via cot for 6:00pm. Transportation form completed and placed on SNF folder and copy on pt's chart. SW updated RN on transportation time. KETURAH placed a call to Evangelina at [facility] and left message updating her on transportation time. SW in to speak with pt. SW informed pt that she will return to [facility] today with transportation arranged for 6:00pm. Pt states understanding. SW asked pt if her daughter is aware of discharge back to [facility] and pt states she is aware, she called her earlier today. KETURAH also spoke with Samantha at [facility] and updated her that plan is for pt to return to [facility] today with IV antibiotics, pt to complete course of IV antibiotics, and then sign on with Hospice again. Samantha states that [facility] will have to order Hospice consult. KETURAH had updated Evangelina at [facility] earlier that pt will need reevaluated for Hospice once pt completes course of IV antibiotics. Plan: [facility] skilled today with Physician's transporting pt via cot at 6:00pm Kelsey MARISCAL, SUPERVISOR PASTRY
[2021-08-30 15:31] VITALS: BP 135/67; PULSE 91; RESP 16; TEMP 37.4; O2SAT 96
[2021-08-30] MEDS: Ensure Clear 120 ML Liquid PO (17:38)
== END 2021-08-30 19:00 | disposition skilled nursing facility (03) ==
LOC: ED 21:30 → MS3 21:34
PROVIDERS: Admitting Provider Family Medicine; Emergency Provider Emergency Medicine; Visit Provider Internal Medicine
DX: T83.512A Infection and inflammatory reaction due to nephrostomy catheter, initial encounter (principal); Z93.3 Colostomy status; C18.9 Malignant neoplasm of colon, unspecified; N18.31 Chronic kidney disease, stage 3a; N16 Renal tubulo-interstitial disorders in diseases classified elsewhere; I12.9 Hypertensive chronic kidney disease with stage 1 through stage 4 chronic kidney disease, or unspecified chronic kidney disease; K21.9 Gastro-esophageal reflux disease without esophagitis; N13.9 Obstructive and reflux uropathy, unspecified; F41.9 Anxiety disorder, unspecified; B96.1 Klebsiella pneumoniae [K. pneumoniae] as the cause of diseases classified elsewhere; B96.5 Pseudomonas (aeruginosa) (mallei) (pseudomallei) as the cause of diseases classified elsewhere; D64.9 Anemia, unspecified; Z79.899 Other long term (current) drug therapy; Y84.9 Medical procedure, unspecified as the cause of abnormal reaction of the patient, or of later complication, without mention of misadventure at the time of the procedure; E87.6 Hypokalemia
CPT/HCPCS: 36415; 36592; 80048; 80053; 81001; 83605; 83735; 85025; 87040; 87077; 87086; 87088; 87184; 87186; 87426; 96361; 96365; 96366; 96367; 96375; 96376; 99218; 99285; J2185; J7030; J7040; J7050; A4216; G0378; J2405